=== PATIENT | female | born 1965 | race Caucasian/White ===

== ENCOUNTER → 2018-09-06 09:05 | Outpatient (CLI) | payer MEDICAID, SELFPAY ==
[2018-09-06 14:15] LABS: Alanine Aminotransferase 33 U/L (12-78); Albumin Level 3.5 gm/dL (3.4-5.0); Albumin/Globulin Ratio 0.9 (1.1-1.8); Alkaline Phosphatase 80 U/L (46-116); Anion Gap 13.5 mEq/L (5-15); Aspartate Amino Transferase 17 U/L (15-37); Bilirubin,Total 0.3 mg/dL (0.2-1.0); Blood Urea Nitrogen 12 mg/dL (7-18); Calcium 8.9 mg/dL (8.5-10.1); Carbon Dioxide 28 mmol/L (21.0-32.0); Chloride 103 mmol/L (98-107); Chol/HDL Ratio 3.3 (1-3.5); Cholesterol 182 mg/dL (140-200); Creatinine,Serum 0.65 mg/dL (0.55-1.02); Estimated Glomerular Filt Rate 96 ml/min (>60); GFR (African American) 116 ML/MIN (>60); Globulin 3.8 gm/dl (1.3-3.2); Glucose 104 mg/dL (74-106); HDL Cholesterol 56 mg/dL (29-89); LDL Cholesterol 106 mg/dL (0-130); Potassium 4.5 mmoL/L (3.5-5.1); Sodium 140 mmol/L (136-145); Total Protein,Serum 7.3 gm/dL (6.4-8.2); Triglycerides 98 mg/dL (30-200); VLDL Cholesterol 20 mg/dL (0-40)
[2018-09-06 14:25] LABS: Hemoglobin A1C 6.5 % (0.0-7.0)
== END ==
PROVIDERS: PCP Nurse Practitioner Family; Visit Provider Nurse Practitioner Family
DX: Z00.00 Encounter for general adult medical examination without abnormal findings (principal); B37.0 Candidal stomatitis; B37.2 Candidiasis of skin and nail; B37.3 Candidiasis of vulva and vagina
CPT/HCPCS: 36415; 80053; 80061; 83036

== ENCOUNTER → 2018-10-30 11:56 | Outpatient (CLI) | payer MEDICAID, SELFPAY ==
--- NOTE | 2018-10-30 12:06 | XR_ITS ---
XR chest 2V HISTORY: ITS.REASON: BRONCHITIS ORDERING PHYSICIAN: Herminio Osborne MD PATIENT AGE: 52 years COMPARISON: None FINDINGS: The cardiomediastinal silhouette and pulmonary vascularity are within normal limits. The lungs are clear without infiltrates, suspicious nodules, or pleural effusions. Calcified nodes are present in the left hilum No acute bony abnormalities. IMPRESSION: No acute finding
== END ==
PROVIDERS: PCP Internal Medicine Adolescent Medicine; Visit Provider Internal Medicine Adolescent Medicine
DX: J20.9 Acute bronchitis, unspecified (principal)
CPT/HCPCS: 71046

== ENCOUNTER → 2019-01-13 08:36 | Outpatient (CLI) | payer MEDICAID, SELFPAY ==
[2019-01-13 14:41] LABS: Basophils % 0.6 % (0.1-2.0); Eosinophils # 0.3 K/mm3 (0.0-0.4); Eosinophils % 3.7 % (0.1-12.0); Hematocrit 44.8 % (37.0-47.0); Hemoglobin 14.5 g/dL (12.2-16.2); Lymphocytes # 2.6 K/mm3 (0.7-4.5); Lymphocytes % 33.8 % (10-50); Mean Corpuscular HGB Conc 32.4 g/dL (31.8-35.4); Mean Corpuscular Hemoglobin 30.1 pg (27.0-31.2); Mean Corpuscular Volume 92.9 fl (81-99); Mean Platelet Volume 8.2 fl (7.4-10.4); Monocytes # 0.4 K/mm3 (0.1-1.0); Monocytes % 5.6 % (1.7-9.3); Neutrophils # 4.3 K/mm3 (1.8-7.8); Neutrophils % 56.4 % (37.0-80.0); Platelet Count 380 K/mm3 (142-424); Red Blood Count 4.82 M/mm3 (4.20-5.40); Red Cell Distribution Width 13.8 % (11.5-17.5); White Blood Count 7.6 K/mm3 (4.8-10.8)
[2019-01-13 14:45] LABS: Alanine Aminotransferase 45 U/L (12-78); Albumin Level 3.9 gm/dL (3.4-5.0); Alkaline Phosphatase 75 U/L (46-116); Anion Gap 15.9 mEq/L (5-15); Aspartate Amino Transferase 27 U/L (15-37); Bilirubin,Total 0.3 mg/dL (0.2-1.0); Blood Urea Nitrogen 7 mg/dL (7-18); Calcium 9.3 mg/dL (8.5-10.1); Carbon Dioxide 26 mmol/L (21.0-32.0); Chloride 100 mmol/L (98-107); Creatinine,Serum 0.74 mg/dL (0.55-1.02); Estimated Glomerular Filt Rate 82 ml/min (>60); GFR (African American) 99 ML/MIN (>60); Globulin 4.1 gm/dl (1.3-3.2); Glucose 149 mg/dL (74-106); Potassium 3.9 mmoL/L (3.5-5.1); Sodium 138 mmol/L (136-145); Thyroid Stimulating Hormone 0.63 uIU/ml (0.358-3.740)
[2019-01-13 14:57] LABS: Hemoglobin A1C 6.4 % (0.0-7.0)
[2019-01-14 06:31] LABS: Creatinine, Urine 16.3 mg/dL (Not Estab.); Microalbumin, Urine <3.0 ug/mL (Not Estab.)
[2019-01-14 09:36] LABS: Hep A Ab, IgM Negative (Negative); Hepatitis B Core Antibody IgM Negative (Negative); Hepatitis B Surface Antigen Negative (Negative)
[2019-01-15 06:57] LABS: HIV Screen 4th Generation wRfx Non Reactive (Non Reactive); Hepatitis C Antibody <0.1 s/co ratio (0.0-0.9)
== END ==
PROVIDERS: PCP Nurse Practitioner Family; Visit Provider Nurse Practitioner Family
DX: B37.0 Candidal stomatitis (principal); Z13.9 Encounter for screening, unspecified; R73.03 Prediabetes; R60.9 Edema, unspecified
CPT/HCPCS: 36415; 80053; 80074; 82043; 82570; 83036; 84443; 85025; 86703; G0432

== ENCOUNTER → 2019-05-05 13:46 | Outpatient (CLI) | payer MEDICAID, SELFPAY ==
[2019-05-05 14:54] LABS: Basophils # 0.1 K/mm3 (0-0.2); Basophils % 0.8 % (0.1-2.0); Eosinophils # 0.3 K/mm3 (0.0-0.4); Eosinophils % 3.1 % (0.1-12.0); Hematocrit 45.9 % (37.0-47.0); Hemoglobin 14.6 g/dL (12.2-16.2); Lymphocytes # 3.7 K/mm3 (0.7-4.5); Lymphocytes % 39.7 % (10-50); Mean Corpuscular HGB Conc 31.7 g/dL (31.8-35.4); Mean Corpuscular Hemoglobin 29.3 pg (27.0-31.2); Mean Corpuscular Volume 92.3 fl (81-99); Mean Platelet Volume 8.6 fl (7.4-10.4); Monocytes # 0.6 K/mm3 (0.1-1.0); Neutrophils # 4.7 K/mm3 (1.8-7.8); Neutrophils % 50.4 % (37.0-80.0); Platelet Count 367 K/mm3 (142-424); Red Blood Count 4.98 M/mm3 (4.20-5.40); Red Cell Distribution Width 13.5 % (11.5-17.5); White Blood Count 9.3 K/mm3 (4.8-10.8)
[2019-05-05 16:23] LABS: Hemoglobin A1C 7.1 % (0.0-7.0)
[2019-05-05 16:31] LABS: Alanine Aminotransferase 43 U/L (12-78); Albumin Level 3.9 gm/dL (3.4-5.0); Alkaline Phosphatase 85 U/L (46-116); Aspartate Amino Transferase 28 U/L (15-37); Bilirubin,Total 0.2 mg/dL (0.2-1.0); Blood Urea Nitrogen 11 mg/dL (7-18); Calcium 9.5 mg/dL (8.5-10.1); Carbon Dioxide 31 mmol/L (21.0-32.0); Chloride 102 mmol/L (98-107); Cholesterol 185 mg/dL (140-200); Creatinine,Serum 0.66 mg/dL (0.55-1.02); Estimated Glomerular Filt Rate 94 ml/min (>60); Free T4 (Free Thyroxine) 1.12 ng/dl (0.76-1.46); GFR (African American) 113 ML/MIN (>60); Globulin 4.1 gm/dl (1.3-3.2); Glucose 108 mg/dL (74-106); HDL Cholesterol 46 mg/dL (29-89); LDL Cholesterol 108 mg/dL (0-130); Sodium 141 mmol/L (136-145); Thyroid Stimulating Hormone 1.01 uIU/ml (0.358-3.740); Triglycerides 156 mg/dL (30-200); VLDL Cholesterol 31 mg/dL (0-40)
[2019-05-07 11:10] LABS: Creatinine, Urine 60.2 mg/dL (Not Estab.); Microalbumin, Urine 24.4 ug/mL (Not Estab.)
[2019-05-07 11:12] LABS: Vitamin D 25 Hydroxy 29.5 ng/mL (30.0-100.0)
== END ==
PROVIDERS: Visit Provider Emergency Medicine
DX: E11.9 Type 2 diabetes mellitus without complications (principal); Z79.84 Long term (current) use of oral hypoglycemic drugs; E55.9 Vitamin D deficiency, unspecified
CPT/HCPCS: 80053; 80061; 82043; 82570; 82652; 83036; 84439; 84443; 85025

== ENCOUNTER → 2019-06-04 20:06 | Outpatient (CLI) | payer MEDICAID, SELFPAY ==
--- NOTE | 2019-06-10 10:08 | PC.NURSE ---
NO CHARGE FOR SLEEP STUDY - PATIENT LEFT AFTER 2 HOURS DUE TO ANXIETY OF TESTING.....
== END ==
PROVIDERS: PCP Emergency Medicine; Visit Provider Emergency Medicine
DX: G47.33 Obstructive sleep apnea (adult) (pediatric) (principal); R40.0 Somnolence; E66.09 Other obesity due to excess calories
CPT/HCPCS: 95810

== ENCOUNTER → 2019-06-30 16:40 | Outpatient (CLI) | payer MEDICAID, SELFPAY ==
[2019-06-30 19:36] LABS: Ferritin 69 ng/mL (8-388)
== END ==
PROVIDERS: Visit Provider Specialist
DX: E83.10 Disorder of iron metabolism, unspecified (principal); G25.81 Restless legs syndrome
CPT/HCPCS: 36415; 82728

== ENCOUNTER → 2019-08-01 16:16 | Outpatient (CLI) | payer OTHER, SELFPAY | PROVIDERS: PCP Emergency Medicine; Visit Provider Specialist | DX: G47.30 Sleep apnea, unspecified (principal); G25.81 Restless legs syndrome; R06.83 Snoring; G47.00 Insomnia, unspecified; G47.19 Other hypersomnia; F51.04 Psychophysiologic insomnia | CPT/HCPCS: 95806 ==

== ENCOUNTER → 2019-08-12 10:41 | Outpatient (CLI) | payer OTHER, SELFPAY | PROVIDERS: PCP Emergency Medicine; Visit Provider Emergency Medicine | DX: M54.5 Low back pain (principal) ==

== ENCOUNTER → 2019-08-14 10:50 | Outpatient (CLI) | payer OTHER, SELFPAY ==
--- NOTE | 2019-08-14 10:52 | MR_ITS ---
PROCEDURE: MR LUMBAR SPINE WO CON CLINICAL INDICATION: back pain Low back pain which is worsening, left leg pain with bilateral leg numbness and tingling COMPARISON: No exams were available for comparison TECHNIQUE: Standard multiplanar multiecho sequences are performed without contrast. 3-D MIP and myelographic images are also rendered and reviewed FINDINGS: There is normal alignment. The spinal cord ends at the L1-L2 level. T12-L1: Mild degenerative disc disease. L1-L2: Mild facet and ligamentum hypertrophy. L2-L3: Mild facet ligamentum hypertrophy. L3-L4: Mild bulging disc with facet and ligamentum hypertrophy with bilateral lateral recess narrowing and mild bilateral foraminal narrowing. L4-5: Moderate facet ligamentum hypertrophy with mild bilateral lateral recess and foraminal narrowing slightly greater on the right. L5-S1: Degenerate disc disease with bulging disc with facet and ligamentum hypertrophy with moderate bilateral foraminal narrowing. There a small left lateral disc osteophyte complex causing some impingement upon the exiting L5 nerve root IMPRESSION: 1. Degenerate disc disease at L5-S1 with bulging disc with facet and ligamentum hypertrophy with moderate bilateral foraminal narrowing. There a small left lateral disc osteophyte complex causing impingement upon the exiting L5 nerve root 2. Other mild degenerative changes as described above. 3. No extruded herniated disc evident. Dictated by: Hernan Gilman MD 08/16/2019 06:08 Electronically signed by Hernan Gilman MD in [place] 08/16/2019 06:08
== END ==
PROVIDERS: PCP Emergency Medicine; Visit Provider Emergency Medicine
DX: M54.9 Dorsalgia, unspecified (principal); M54.5 Low back pain
CPT/HCPCS: 72148; 76376

== ENCOUNTER → 2019-08-27 17:05 | Outpatient (CLI) | payer OTHER, SELFPAY ==
[2019-08-27 20:28] LABS: Amphetamine/Metha Screen,Urine Negative ng/mL (<1000); Barbiturates Screen,Urine Negative ng/mL (<200); Benzodiazepines Screen,Urine Negative ng/mL (<200); Cannabinoid Screen,Urine Positive ng/mL (<50); Cocaine Screen,Urine Negative ng/mL (<300); Methadone Screen,Urine Negative ng/mL (<300); Opiate Screen,Urine Positive ng/mL (<300); Phencyclidine Screen,Urine Negative ng/mL (<25)
== END ==
PROVIDERS: Visit Provider Emergency Medicine
DX: M51.36 Other intervertebral disc degeneration, lumbar region (principal)
CPT/HCPCS: 80305

== ENCOUNTER → 2019-10-22 17:10 | Outpatient (CLI) | payer OTHER, SELFPAY ==
[2019-10-22 19:23] LABS: Amphetamine/Metha Screen,Urine Negative ng/mL (<1000); Barbiturates Screen,Urine Negative ng/mL (<200); Benzodiazepines Screen,Urine Negative ng/mL (<200); Cannabinoid Screen,Urine Positive ng/mL (<50); Cocaine Screen,Urine Negative ng/mL (<300); Methadone Screen,Urine Negative ng/mL (<300); Opiate Screen,Urine Positive ng/mL (<300); Phencyclidine Screen,Urine Negative ng/mL (<25)
== END ==
PROVIDERS: Visit Provider Emergency Medicine
DX: Z79.899 Other long term (current) drug therapy (principal)
CPT/HCPCS: 80305

== ENCOUNTER → 2019-10-27 13:00 | Outpatient (POV) | payer OTHER, SELFPAY ==
[2019-10-27 13:14] VITALS: BP 187/89; PULSE 88; RESP 18; O2SAT 99; BMI 44.4
--- NOTE | 2019-10-28 08:49 | HMH.PMCON ---
Assessment and Plan (1) DDD (degenerative disc disease), lumbar Current visit: No Status: Chronic Category: Medical Code(s): M51.36 - Other intervertebral disc degeneration, lumbar region (2) Lumbar nerve root impingement Current visit: No Status: Chronic Category: Medical Code(s): M54.16 - Radiculopathy, lumbar region - Assessment and plan all Dx Assessment and Plan for all problems:: We will set the patient up for L4-L5 lumbar epidural steroid injection given the symptomology. And the recommendation of the neurosurgeon. I will follow-up with the patient after injection reassess her symptoms at that time she is been taking anti-inflammatories. She is continuing a home stretching program. She is not on any anticoagulation therapy. I will follow-up with her after this. She is been instructed to call the office if she has any issues prior to her next appointment. Dr. Cohen has reviewed this note and agrees with this plan of care. This note was dictated using voice recognition software and may contain errors or omissions HPI - Data of Consult Consult date: 10/27/19 Requesting Physician: Cher Byrne APRN Primary Care Provider: Issa Yeboah MD - Consult Narrative Reason for consult: Back pain, leg pain History of present illness: Ms. Salomon is a 53 year old female who presents today for consultation regards to her low back pain. Patient rates her pain today a 6 out of 10. Mostly in her low back. Patient states that bending lifting increases her pain will rest heat ice gabapentin decrease her pain. She numbness and tingling in bilateral legs. She is tried and failed Lortab and gabapentin. Patient does have an MRI showing facet ligamentum hypertrophy along with degenerative disc disease lumbar spine. She does have impingement upon the exiting L5 nerve root. Patient and I discussed options in regards to treatment. She is interested in injective therapy. Patient was seen by Dr. Madden this was suggested to her. I do believe it would benefit her. CC: Cher Byrne APRN [facility] History I have reviewed the patient's past medical history: Yes Medical History: Reports:: Diabetes Mellitus Type 2, Hypertension *Have you ever received a pneumonia vaccine?: Yes *Have you received a flu vaccine this season?: Yes Other Medical History: Reports: Other Other Surgeries: Yes: Appendectomy, Cholecystectomy, , Tubal Ligation Amputation: No Fractures: No - *Social History Smoking Status: Current every day smoker Tobacco Type: cigarettes # Packs/Day (cigarettes): 1 #Yrs smoked (if former smoker): 35 Alcohol Intake: never Alcohol Intake Frequency:: other Substance Use Type: former substance user, marijuana *Occupational Status:: other Housing: house Household Members: significant other *Travel in the last 8 weeks: None Family Hx:: Diabetes, Heart Attack, Cancer, Hypertension, Kidney Disease Review of Systems - Review of Systems ROS General: no recent weight change, no fever, no sleep disturbances Respiratory: no cough, no shortness of air, no recurring pulmonary infections Cardiovascular/Peripheral Vascular: No chest pain, No palpitations, no edema, no shortness of breath. Gastrointestinal: no new onset incontinence, normal bowel movements reported Genitourinary: no new onset incontinence Musculoskeletal: Back pain, leg pain Psychiatric: normal mood/ affect Neurological: [denies new onset weakness in extremities], [denies new onset balance issues] Meds Home Medications Medication Instructions Recorded Confirmed Type furosemide 20 mg tablet 20 mg PO DAILY #90 tab 05/05/19 10/22/19 Rx albuterol sulfate 90 mcg/actuation 1 puff INHALATION Q4-6H PRN #18 g 08/11/19 10/22/19 Rx aerosol inhaler fluticasone propionate 50 1 spray INTRANASAL DAILY #16 g 08/11/19 10/22/19 Rx mcg/actuation nasal spray,suspension blood sugar diagnostic See Dose Instructions .ROUTE 08/27/19 0
== END ==
PROVIDERS: PCP Emergency Medicine; Visit Provider Clinical Nurse Specialist Family Health
DX: M51.16 Intervertebral disc disorders with radiculopathy, lumbar region (principal); E11.9 Type 2 diabetes mellitus without complications; I10 Essential (primary) hypertension; Z72.0 Tobacco use; Z79.899 Other long term (current) drug therapy; Z79.84 Long term (current) use of oral hypoglycemic drugs
CPT/HCPCS: 99202

== ENCOUNTER → 2019-11-17 16:49 | Outpatient (CLI) | payer OTHER, SELFPAY ==
[2019-11-17 17:43] LABS: Basophils # 0.1 K/mm3 (0-0.2); Basophils % 0.7 % (0.1-2.0); Eosinophils # 0.2 K/mm3 (0.0-0.4); Eosinophils % 1.9 % (0.1-12.0); Hematocrit 43.4 % (37.0-47.0); Hemoglobin 13.9 g/dL (12.2-16.2); Lymphocytes # 4.3 K/mm3 (0.7-4.5); Lymphocytes % 36.9 % (10-50); Mean Corpuscular HGB Conc 32.1 g/dL (31.8-35.4); Mean Corpuscular Hemoglobin 28.5 pg (27.0-31.2); Mean Corpuscular Volume 88.8 fl (81-99); Mean Platelet Volume 8.4 fl (7.4-10.4); Monocytes # 0.6 K/mm3 (0.1-1.0); Monocytes % 4.9 % (1.7-9.3); Neutrophils # 6.4 K/mm3 (1.8-7.8); Neutrophils % 55.6 % (37.0-80.0); Platelet Count 387 K/mm3 (142-424); Red Blood Count 4.89 M/mm3 (4.20-5.40); White Blood Count 11.5 K/mm3 (4.8-10.8)
[2019-11-17 21:32] LABS: Alanine Aminotransferase 27 U/L (9-52); Albumin Level 4.3 g/dL (3.4-5.0); Albumin/Globulin Ratio 1.2 (1.1-1.8); Alkaline Phosphatase 86 U/L (46-116); Anion Gap 14.1 mEq/L (5-15); Aspartate Amino Transferase 17 U/L (15-37); Bilirubin,Total 0.2 mg/dL (0.2-1.0); Blood Urea Nitrogen 11 mg/dL (7-18); Calcium 9.5 mg/dL (8.5-10.1); Carbon Dioxide 29 mmol/L (21.0-32.0); Chloride 103 mmol/L (98-107); Chol/HDL Ratio 3.6 (1-3.5); Cholesterol 171 mg/dL (140-200); Estimated Glomerular Filt Rate 75 ml/min (>60); Free T4 (Free Thyroxine) 1.24 ng/dl (0.76-1.46); GFR (African American) 91 ML/MIN (>60); Globulin 3.7 gm/dl (1.3-3.2); Glucose 99 mg/dL (74-106); HDL Cholesterol 48 mg/dL (29-89); LDL Cholesterol 77 mg/dL (0-130); Potassium 4.1 mmoL/L (3.5-5.1); Sodium 142 mmol/L (137-145); Thyroid Stimulating Hormone 1.22 uIU/ml (0.358-3.740); Triglycerides 231 mg/dL (30-200); VLDL Cholesterol 46 mg/dL (0-40)
[2019-11-21 09:34] LABS: Vitamin D 25 Hydroxy 27.2 ng/mL (30.0-100.0)
== END ==
PROVIDERS: Visit Provider Emergency Medicine
DX: E11.9 Type 2 diabetes mellitus without complications (principal); E55.9 Vitamin D deficiency, unspecified; Z79.84 Long term (current) use of oral hypoglycemic drugs
CPT/HCPCS: 80053; 80061; 82652; 84439; 84443; 85025

== ENCOUNTER → 2019-12-15 14:54 | Outpatient (POV) | payer OTHER, SELFPAY ==
[2019-12-15 15:29] VITALS: BP 178/83; PULSE 63; RESP 18; O2SAT 18; BMI 42.7
--- NOTE | 2019-12-16 08:47 | HMH.PAINSOAP ---
[facility] Pain Management SOAP Note Subjective:: Patient is a pleasant 53-year-old white female who presents today for follow-up after lumbar epidural steroid injection. She was referred to us by Dr. Madden for injections. She is actually doing fairly well. Her pain just recently began to return. She got 80% relief of her symptomology. Patient and I discussed completing the epidural series. She is interested in moving forward with this she rates her pain a 6 out of 10 she is not on any blood thinners. Patient is also on gabapentin we discussed increasing it she is currently on gabapentin 300 mg 1 p.o. 3 times daily. We will increase this to 4 times a day she can take 2 pills prior to bedtime. ROS General: no recent weight change, no fever, no sleep disturbances Respiratory: no cough, no shortness of air, no recurring pulmonary infections Cardiovascular/Peripheral Vascular: No chest pain, No palpitations, no edema, no shortness of breath. Gastrointestinal: no new onset incontinence, normal bowel movements reported Genitourinary: no new onset incontinence Musculoskeletal: Back pain Psychiatric: normal mood/ affect Neurological: [denies new onset weakness in extremities], [denies new onset balance issues] Objective:: Physical Exam General: Alert and oriented x3, no acute distress, pleasant and cooperative, [on room air] Lungs: Resps E/U, Symmetrical chest expansion, Eyes: PERRL Musculoskeletal: Flexion and extension of lumbar spine somewhat guarded secondary to pain, deep tendon reflexes normal, strength in upper and lower extremities [5/5], slightly antalgic gait noted Neurological: speech clear, transit planner equal, no gross sensory deficits Assessment:: Degenerative disc disease lumbar spine with lumbar radiculopathy Plan:: We will schedule the patient for repeat L4-L5 lumbar epidural steroid injection. We will also increase her gabapentin to 300 mg 1 p.o. 4 times daily. She can take 2 pills prior to bedtime. I will follow-up with her after injection reassess her symptoms at that time she has been instructed to call the office if she has any issues prior to her next appointment. Dr. Cohen has reviewed this note and agrees with this plan of care. This note was dictated using voice recognition software and may contain errors or omissions [facility] History I have reviewed the patient's past medical history: Yes Medical History: Reports:: Diabetes Mellitus Type 2, Hypertension Denies:: Cancer, MRSA, Seizures *Have you ever received a pneumonia vaccine?: Yes *Have you received a flu vaccine this season?: Yes Other Medical History: Reports: Other. Denies: Blood Transfusion Reaction Other Surgeries: Yes: Appendectomy, Cholecystectomy, , Tubal Ligation Amputation: No Fractures: No - *Social History Smoking Status: Former smoker Tobacco Type: cigarettes # Packs/Day (cigarettes): 1 #Yrs smoked (if former smoker): 35 Alcohol Intake: never Alcohol Intake Frequency:: other Substance Use Type: former substance user, marijuana *Occupational Status:: other Housing: house Household Members: significant other *Travel in the last 8 weeks: None Family Hx:: Diabetes, Heart Attack, Cancer, Hypertension, Kidney Disease
== END ==
PROVIDERS: PCP Emergency Medicine; Visit Provider Clinical Nurse Specialist Family Health
DX: M51.16 Intervertebral disc disorders with radiculopathy, lumbar region (principal); F12.11 Cannabis abuse, in remission
CPT/HCPCS: 99212

== ENCOUNTER → 2019-12-19 16:57 | Outpatient (CLI) | payer OTHER, SELFPAY ==
[2019-12-19 18:53] LABS: Amphetamine/Metha Screen,Urine Negative ng/ml (<1000); Barbiturates Screen,Urine Negative ng/ml (<200)
[2019-12-19 18:54] LABS: Benzodiazepines Screen,Urine Negative ng/ml (<200)
[2019-12-19 18:57] LABS: Cannabinoid Screen,Urine Positive ng/ml (<50); Cocaine Screen,Urine Negative ng/ml (<300)
[2019-12-19 18:58] LABS: Methadone Screen,Urine Negative ng/ml (<300)
[2019-12-19 18:59] LABS: Opiate Screen,Urine Positive ng/ml (<300); Phencyclidine Screen,Urine Negative ng/ml (<25)
== END ==
PROVIDERS: Visit Provider Emergency Medicine
DX: Z79.899 Other long term (current) drug therapy (principal)
CPT/HCPCS: 80305

== ENCOUNTER 2020-01-09 10:36 | Day surgery (SDC) | payer OTHER, SELFPAY ==
[2020-01-09 10:56] VITALS: BP 172/74; PULSE 57; RESP 18; TEMP 36.6; O2SAT 99; BMI 42.7
[2020-01-09 11:13] VITALS: BP 170/85; PULSE 55; RESP 18
[2020-01-09 11:14] VITALS: BP 165/87; PULSE 58; RESP 18; O2SAT 98
--- NOTE | 2020-01-09 11:17 | HMH.PMPROC ---
- Procedure Date: 01/09/20 Time: 11:18 Anesthesiologist:: Salvador Cohen MD Complications:: None Pre-procedure Diagnosis:: Degenerative disc disease of lumbar spine with lumbar radiculopathy symptoms Post-procedure Diagnosis:: Same Indications for Procedure:: This patient is a pleasant 53-year-old white female who we are treating for low back pain with lumbar radicular symptoms. She is done very well with her previous epidural steroid injection. She was 80% better. This was done approximately 2 months ago. Her pain is starting to come back and is worse in her back and down her left leg. It is affecting activities of daily living. Is affecting her functionality. She has severe pain in her back and down her left leg so we will do a lumbar epidural steroid injection today to keep her out of the emergency room and off oral opioids. Procedure Details:: Lumbar epidural steroid injection under fluoroscopy Informed consent was obtained and the risk and benefits of the procedure was explained to the patient. The patient was taken to the procedure room. The patient was placed prone on the procedure table. The patient was prepped and draped in sterile fashion. C-arm fluoroscopy was used to view the lumbar spine. Skin and subcutaneous tissues were anesthetized using lidocaine. I placed an 18-gauge epidural needle and advanced into the L4-L5 interspace using fluoroscopic guidance and [id number] to air. After confirmation of needle placement in the epidural space with dye I injected 2 mL of lidocaine 1.5% with Depo-Medrol 80 mg. Patient tolerated the procedure well with no complications. Plan and Disposition:: We will follow-up with her in 2 weeks. Will reevaluate her symptoms at that time.
[2020-01-09 11:28] VITALS: BP 166/73; PULSE 55; RESP 18; O2SAT 99
== END 2020-01-09 11:29 | disposition home or self-care (01) ==
LOC: SC.PAINP 10:36
PROVIDERS: PCP Emergency Medicine; Visit Provider Anesthesiology
DX: M51.16 Intervertebral disc disorders with radiculopathy, lumbar region (principal)
CPT/HCPCS: 62323; J1040; Q9966

== ENCOUNTER → 2020-01-26 13:47 | Outpatient (POV) | payer OTHER, SELFPAY ==
--- NOTE | 2020-01-26 13:59 | HMH.VVPMSO ---
[facility] Virtual Visit SOAP Consent for virtual visit:: With the recent concerns about the COVID-19, we are trying to minimize exposure to you by shifting to telehealth appointments whenever possible. It restricts me from seeing you in person, but the trade off is protecting you during this pandemic. Can you see and hear me okay, and do you consent to this option? If not, I would be happy to see if we can reschedule your appointment in the future, when feasible. Has patient consented to this virtual visit?: Yes Subjective:: She is pleasant 54-year-old white female who presents today for follow-up after her second L4-L5 lumbar epidural steroid injection. She states that she got 80% relief. Her pain is slowly returning and would like to finish off the third epidural in her series of 3. She rates her pain today a 6 out of 10. She has radiation of her pain into her left leg. Our plan will move the to move forward with a lumbar epidural steroid injection to help with her functionality and activities of daily living. This will serve to help keep her out of emergency rooms and off oral opioids. ROS General: no recent weight change, no fever, no sleep disturbances Respiratory: no cough, no shortness of air, no recurring pulmonary infections Cardiovascular/Peripheral Vascular: No chest pain, No palpitations, no edema, no shortness of breath. Gastrointestinal: no new onset incontinence, normal bowel movements reported Genitourinary: no new onset incontinence Musculoskeletal: Back pain, leg pain Psychiatric: normal mood/ affect, Neurological: [denies new onset weakness in extremities], [denies new onset balance issues] Objective:: Physical exam: Constitutional: Healthy appearing, well-developed, alert, in no acute distress Psychiatric: Judgment and insight intact, Alert and oriented x4 Mood and affect: Mood normal, affect appropriate Head and face: Inspection: Normocephalic atraumatic, extraocular movement intact Respiratory: Breathing nonlabored, nondyspneic Cardiovascular: No cyanosis, clubbing, or edema observed Skin: Head and neck: Skin with no lesions or rash observed Gait: Able to walk without assistive device: Able to heel and toe walk Neurologic: Sensation grossly intact per patient Musculoskeletal: Patient has decreased range of motion lumbar spine noted on video Assessment:: Degenerative disc disease lumbar spine with lumbar radiculopathy Plan:: Given the efficacy of the injections in the past we will move forward with an additional L4-L5 lumbar epidural steroid injection. She is not on any anticoagulation therapy. We will do this in a month's time. I will follow-up with her after this reassess her symptoms at that time she has been instructed to call the office if she has any issues prior to her next appointment. This encounter was performed as a telemedicine visit via secure 2 way video and audio to minimize risk and transmission of Covid-19. The patient and we understand the limitations of a telemedicine visit including inability to check reflexes, possibly missing subtle findings on physical exam. Alternative options were presented to the patient and the patient elected to proceed with the visit. We specifically discussed risk factors for Covid-19 including age, heart or lung disease, diabetes, immunosuppression and travel. We also discussed that NSAIDs may worsen Covid-19 infection symptoms and that they should not be used to treat Covid-19 symptoms. Patient was also informed that corticosteroids in any form oral or injectable will decrease immune response and may increase risk of Covid-[address] Cohen has reviewed this patient's chart and this note and agrees with plan of care. Patient has been instructed to call the office if they have any issues prior to the next appointment. Time In:: 13:50 Time Out:: 14:00 [facility] History I have reviewed the patient's past medical history: Yes Medical History:
== END ==
PROVIDERS: Visit Provider Clinical Nurse Specialist Family Health
DX: M51.16 Intervertebral disc disorders with radiculopathy, lumbar region (principal)
CPT/HCPCS: 99212

== ENCOUNTER 2020-02-27 09:06 | Day surgery (SDC) | payer OTHER, SELFPAY ==
[2020-02-27 09:23] VITALS: BP 179/71; PULSE 68; RESP 18; O2SAT 96; BMI 40.3
[2020-02-27 10:06] VITALS: BP 182/78; PULSE 64; RESP 18; O2SAT 99
[2020-02-27 10:07] VITALS: BP 178/89; PULSE 85; RESP 18; O2SAT 99
[2020-02-27 10:12] VITALS: BP 155/82; PULSE 59; RESP 18; O2SAT 97
--- NOTE | 2020-02-27 11:25 | HMH.PMPROC ---
- Procedure Date: 02/27/20 Time: 11:25 Anesthesiologist:: Salvador Cohen MD Complications:: None Pre-procedure Diagnosis:: Degenerative disc disease of lumbar spine with lumbar radiculopathy symptoms Post-procedure Diagnosis:: Same Indications for Procedure:: Patient is a pleasant 54-year-old white female who we are treating for low back pain with lumbar radicular symptoms. She is done very well with her previous injections with 80 to 90% relief in her pain symptoms. Her pain is now starting to return. She presents for third lumbar epidural steroid injection under fluoroscopy today. Procedure Details:: Lumbar epidural steroid injection under fluoroscopy informed consent was obtained and the risk and benefits of the procedure was explained to the patient. The patient was taken to the procedure room. The patient was placed prone on the procedure table. The patient was prepped and draped in sterile fashion. C-arm fluoroscopy was used to view the lumbar spine. Skin and subcutaneous tissues were anesthetized using lidocaine. I placed an 18-gauge epidural needle and advanced into the L4-L5 interspace using fluoroscopic guidance and [id number] to air. After confirmation of needle placement in the epidural space with dye I injected 2 mL of lidocaine 1.5% with Depo-Medrol 80 mg. Patient tolerated the procedure well with no complications. Plan and Disposition:: We will follow-up with her in 2 weeks. Will reevaluate symptoms at that time.
== END 2020-02-27 10:13 | disposition home or self-care (01) ==
LOC: SC.PAINP 09:07
PROVIDERS: PCP Emergency Medicine; Visit Provider Anesthesiology
DX: M51.16 Intervertebral disc disorders with radiculopathy, lumbar region (principal); I10 Essential (primary) hypertension; Z72.0 Tobacco use; J45.909 Unspecified asthma, uncomplicated; Z90.49 Acquired absence of other specified parts of digestive tract; Z79.84 Long term (current) use of oral hypoglycemic drugs; Z79.51 Long term (current) use of inhaled steroids; Z79.899 Other long term (current) drug therapy
CPT/HCPCS: 62323; J1040; Q9966

== ENCOUNTER → 2020-04-14 13:43 | Outpatient (CLI) | payer OTHER, SELFPAY ==
[2020-04-15 14:11] LABS: Hemoglobin A1C 6.2 % (4.0-6.0)
[2020-04-15 14:18] LABS: Chol/HDL Ratio 3.2 (1-3.5); Cholesterol 182 mg/dl (140-200); HDL Cholesterol 57 mg/dl (40-60); Triglycerides 162 mg/dl (30-150); VLDL Cholesterol 32 mg/dL (0-40)
[2020-04-15 14:28] LABS: Direct LDL Cholesterol 113.97 mg/dL (100-129)
== END ==
PROVIDERS: Visit Provider Emergency Medicine
DX: E11.9 Type 2 diabetes mellitus without complications (principal); E78.00 Pure hypercholesterolemia, unspecified; Z79.84 Long term (current) use of oral hypoglycemic drugs
CPT/HCPCS: 80061; 83036

== ENCOUNTER → 2020-09-21 17:42 | Outpatient (CLI) | payer OTHER, SELFPAY ==
[2020-09-21 18:18] LABS: Basophils # 0.1 K/mm3 (0-0.2); Basophils % 0.9 % (0.1-2.0); Eosinophils # 0.1 K/mm3 (0.0-0.4); Eosinophils % 1.3 % (0.1-12.0); Hematocrit 46.4 % (37.0-47.0); Hemoglobin 14.8 g/dL (12.2-16.2); Lymphocytes # 3.8 K/mm3 (0.7-4.5); Lymphocytes % 39.9 % (10-50); Mean Corpuscular HGB Conc 31.8 g/dL (31.8-35.4); Mean Corpuscular Hemoglobin 28.5 pg (27.0-31.2); Mean Corpuscular Volume 89.8 fl (81-99); Mean Platelet Volume 9.3 fl (7.4-10.4); Monocytes # 0.5 K/mm3 (0.1-1.0); Monocytes % 5.7 % (1.7-9.3); Neutrophils % 52.3 % (37.0-80.0); Platelet Count 425 K/mm3 (142-424); Red Blood Count 5.17 M/mm3 (4.20-5.40); Red Cell Distribution Width 15.1 % (11.5-17.5); White Blood Count 9.6 K/mm3 (4.8-10.8)
[2020-09-21 18:42] LABS: Alanine Aminotransferase 21 U/L (12-78); Albumin Level 4.6 g/dl (3.5-5.0); Albumin/Globulin Ratio 1.4 (1.1-1.8); Alkaline Phosphatase 91 U/L (38-126); Aspartate Amino Transferase 45 U/L (14-36); Bilirubin,Total 0.5 mg/dl (0.2-1.3); Blood Urea Nitrogen 15 mg/dl (7-17); Carbon Dioxide 31 mmol/L (22.0-30.0); Chloride 96 mmol/L (98-107); Chol/HDL Ratio 3.3 (1-3.5); Cholesterol 193 mg/dl (140-200); Estimated Glomerular Filt Rate 104 ml/min (>60); GFR (African American) 126 ML/MIN (>60); Globulin 3.4 g/dL (1.3-3.2); Glucose 141 mg/dl (74-100); HDL Cholesterol 59 mg/dl (40-60); Sodium 135 mmol/L (136-145); Triglycerides 119 mg/dl (30-150); VLDL Cholesterol 24 mg/dL (0-40)
[2020-09-21 18:54] LABS: Direct LDL Cholesterol 107.24 mg/dL (100-129)
[2020-09-21 19:00] LABS: T4 (Thyroxine) 11.1 ug/dl (5.53-11.0)
[2020-09-21 19:03] LABS: 25-OH Vitamin D, Total 28.8 ng/mL (30-100)
[2020-09-21 19:13] LABS: Thyroid Stimulating Hormone 0.64 uIU/mL (0.465-4.68)
== END ==
PROVIDERS: Visit Provider Emergency Medicine
DX: E66.9 Obesity, unspecified (principal); I10 Essential (primary) hypertension; R53.83 Other fatigue; R73.03 Prediabetes; E55.9 Vitamin D deficiency, unspecified
CPT/HCPCS: 80053; 80061; 82306; 83036; 84436; 84443; 85025

== ENCOUNTER → 2020-10-04 15:05 | Outpatient (CLI) | payer OTHER, SELFPAY ==
--- NOTE | 2020-10-04 15:09 | MM_ITS ---
PROCEDURE: MM DIG SCREENING MAMM BI W/CAD Digital Breast Tomosynthesis Included CLINICAL INDICATION: breast ca screening There is a history of breast cancer in the patient's maternal grandmother and paternal grandmother both diagnosed after menopause. COMPARISON: MG DIG MAMMO BILAT SCREENING from 08/16/2009 MG MAMMO SCREENING DIGITAL BILAT from 06/15/2015 MG Screening-Bilateral Mammography from 09/19/2018 TECHNIQUE: Standard CC and MLO images and 3D Tomosynthesis was obtained. R2 CAD reviewed. FINDINGS: The breasts are composed primarily of fat with minimal scattered fibroglandular densities in each breast. There is a stable somewhat lobulated nodular lesion 9 o'clock position right breast. This is likely a fibroadenoma. There is stable asymmetric glandular elements and a tiny benign appearing nodular density 2 to 3 o'clock position left breast. Of these asymmetries are stable and unchanged from mammograms dating back to 08/16/2009 IMPRESSION: Fatty type breast parenchyma with stable benign-appearing lesions in each breast BI-RAD Category: 2 Benign Finding(s) FOLLOW-UP: 1YR 1 Year Follow-up (A letter has been sent to the patient regarding results of the study.) Dictated by: Dr. Tao Dejesus MD 10/19/2020 08:23 Dr. Tao Dejesus MD in [place] 10/19/2020 08:23
== END ==
PROVIDERS: PCP Emergency Medicine; Visit Provider Emergency Medicine
DX: Z12.31 Encounter for screening mammogram for malignant neoplasm of breast (principal)
CPT/HCPCS: 77063; 77067

== ENCOUNTER → 2020-11-02 07:57 | Outpatient (CLI) | payer OTHER, SELFPAY ==
[2020-11-02 09:38] LABS: Coronavirus 19 IgG Antibody Negative (Negative); Coronavirus 19 IgM Antibody Negative (Negative)
[2020-11-04 09:03] LABS: HCG Qualitative, Serum Positive (Negative)
== END ==
PROVIDERS: Visit Provider Surgery
DX: Z01.812 Encounter for preprocedural laboratory examination (principal); Z20.822 Contact with and (suspected) exposure to COVID-19; Z12.11 Encounter for screening for malignant neoplasm of colon
CPT/HCPCS: 36415; 84703; 86328

== ENCOUNTER 2020-11-04 07:24 | Day surgery (SDC) | payer OTHER, SELFPAY ==
[2020-11-02 10:04] VITALS: BMI 36.3
[2020-11-04 07:56] VITALS: BP 103/56; PULSE 60; RESP 18; TEMP 36.3; O2SAT 96
[2020-11-04 08:14] LABS: POC Glucose,Bedside 106 (70-110)
--- NOTE | 2020-11-04 08:24 | HMH.ANESCL ---
[facility] Anesthesia Checklist - Structural Data Admitted From: Home Planned Operative Procedure/s: colonoscopy Consent for Planned Operative Procedure(s) Verified: Yes - Additional verifications Anesthesia Reactions: No Hx Blood Transfusions: No Blood Transfusion Reaction: No - Airway Assessment C-Spine Mobility Assessed: Yes TMJ Mobility Assessed: Yes Dentition: Good Dentition - Neurological Assessment Level of Consciousness: Awake, Alert, Appropriate - Anesthesia Plan Anesthesia Risk discussed: Yes Anesthesia Plan: Verified ASA Class: II Anesthesia Type: MAC [facility] History I have reviewed the patient's past medical history: Yes Medical History: Reports:: Anxiety, Diabetes Mellitus Type 2, Hypertension Denies:: Cancer, Diabetes Mellitus Type 1, MRSA, Seizures *Have you ever received a pneumonia vaccine?: No *Have you received a flu vaccine this season?: Yes Other Medical History: Reports: Other. Denies: Blood Transfusion Reaction Anesthesia experience/problems:: none Other Surgeries: Yes: Appendectomy, Cholecystectomy, , Tubal Ligation Amputation: No Fractures: No - *Social History Last grade of school completed: GED Smoking Status: Current every day smoker Tobacco Type: cigarettes # Packs/Day (cigarettes): 1 #Yrs smoked (if former smoker): 35 Alcohol Intake: never Alcohol Intake Frequency:: other Substance Use Type: marijuana *Occupational Status:: employed Housing: house Household Members: significant other *Travel in the last 8 weeks: None - Psychiatric History Pschychiatric History:: Reports:: Anxiety Family Hx:: Diabetes, Heart Attack, Cancer, Hypertension, Kidney Disease
--- NOTE | 2020-11-04 09:11 | SUR.PREOP ---
PT SERUM HCG POSITIVE X3 THIS AM. DR EDWARDS NOTIFIED PT AND DISCUSSED WITH HER NEED TO AMOR COLONOSCOPOY TODAY. INSTRUCTED PT TO CONTACT AESTHETICIAN TO FOLLOW UP WITH FURTHER TESTING. PT VERBALIZED UNDERSTANDING.
== END 2020-11-04 09:14 | disposition home or self-care (01) ==
LOC: OUTP 07:25
PROVIDERS: PCP Emergency Medicine; Visit Provider Surgery
PROC: 0DJD8ZZ Inspection of Lower Intestinal Tract, Via Natural or Artificial Opening Endoscopic (ICD-10-PCS; CPT 45378; principal; 2020-11-04 08:30)
DX: Z53.09 Procedure and treatment not carried out because of other contraindication (principal); Z12.11 Encounter for screening for malignant neoplasm of colon
CPT/HCPCS: 45378; 82962

== ENCOUNTER → 2020-11-05 10:11 | Outpatient (CLI) | payer OTHER, SELFPAY ==
[2020-11-05 10:57] LABS: HCG,Quantitative 7 mIU/ml (0-5.42)
== END ==
PROVIDERS: Visit Provider Obstetrics & Gynecology
DX: Z32.00 Encounter for pregnancy test, result unknown (principal)
CPT/HCPCS: 36415; 84702

== ENCOUNTER → 2020-11-26 13:53 | Outpatient (CLI) | payer OTHER, SELFPAY ==
[2020-11-26 14:18] LABS: Amphetamine/Metha Screen,Urine Negative ng/ml (<1000)
[2020-11-26 14:19] LABS: Barbiturates Screen,Urine Negative ng/ml (<200)
[2020-11-26 14:20] LABS: Benzodiazepines Screen,Urine Negative ng/ml (<200); Cannabinoid Screen,Urine Positive ng/ml (<50)
[2020-11-26 14:21] LABS: Cocaine Screen,Urine Negative ng/ml (<300)
[2020-11-26 14:22] LABS: Methadone Screen,Urine Negative ng/ml (<300); Opiate Screen,Urine Positive ng/ml (<300)
[2020-11-26 14:23] LABS: Phencyclidine Screen,Urine Negative ng/ml (<25)
== END ==
PROVIDERS: Visit Provider Emergency Medicine
DX: Z79.899 Other long term (current) drug therapy (principal)
CPT/HCPCS: 80305

== ENCOUNTER → 2020-12-14 08:11 | Outpatient (CLI) | payer OTHER, SELFPAY ==
[2020-12-14 10:43] LABS: Coronavirus 19 IgG Antibody Negative (Negative); Coronavirus 19 IgM Antibody Negative (Negative)
== END ==
PROVIDERS: Visit Provider Surgery
DX: Z01.818 Encounter for other preprocedural examination (principal); Z20.822 Contact with and (suspected) exposure to COVID-19; Z12.11 Encounter for screening for malignant neoplasm of colon
CPT/HCPCS: 36415; 86328

== ENCOUNTER 2020-12-16 06:22 | Day surgery (SDC) | payer OTHER, SELFPAY ==
[2020-12-14 11:12] VITALS: BMI 36.1
[2020-12-16 06:43] VITALS: BP 143/72; PULSE 58; RESP 18; TEMP 36.4; O2SAT 95
--- NOTE | 2020-12-16 06:57 | P.PN_ITS ---
[facility] Anesthesia Checklist - Structural Data Admitted From: Home Planned Operative Procedure/s: colonoscopy Consent for Planned Operative Procedure(s) Verified: Yes - Additional verifications Anesthesia Reactions: No Hx Blood Transfusions: No Blood Transfusion Reaction: No - Airway Assessment C-Spine Mobility Assessed: Yes TMJ Mobility Assessed: Yes Dentition: Dentures-good fit - Neurological Assessment Level of Consciousness: Awake, Alert, Appropriate - Anesthesia Plan Anesthesia Risk discussed: Yes Anesthesia Plan: Verified ASA Class: II Anesthesia Type: MAC [facility] History I have reviewed the patient's past medical history: Yes Medical History: Reports:: Anxiety, Diabetes Mellitus Type 2, Hypertension Denies:: Cancer, Diabetes Mellitus Type 1, Internal Pacemaker, MRSA, Seizures *Have you ever received a pneumonia vaccine?: No *Have you received a flu vaccine this season?: Yes Other Medical History: Reports: Other. Denies: Blood Transfusion Reaction Anesthesia experience/problems:: none Other Surgeries: Yes: Appendectomy, Cholecystectomy, , Tubal Ligation. No: Pacemaker Amputation: No Fractures: No - *Social History Last grade of school completed: GED Smoking Status: Current every day smoker Tobacco Type: cigarettes # Packs/Day (cigarettes): 1 #Yrs smoked (if former smoker): 35 Alcohol Intake: never Alcohol Intake Frequency:: other Substance Use Type: marijuana *Occupational Status:: employed Housing: house Household Members: significant other *Travel in the last 8 weeks: None - Psychiatric History Pschychiatric History:: Reports:: Anxiety Family Hx:: Diabetes, Heart Attack, Cancer, Hypertension, Kidney Disease
[2020-12-16 08:22] VITALS: BP 129/65; PULSE 61; RESP 16; TEMP 36.4; O2SAT 98
--- NOTE | 2020-12-16 08:23 | P.PCN_ITS ---
- Procedure: Date: 12/16/20 Patient Date of :: 1965 Procedure Performed:: Colonoscopy with polypectomy Indications:: Screening Performing Provider:: Mumtaz Morel MD Referring Provider:: . Sedation:: Monitored anesthesia care Procedure:: After informed consent was obtained the patient was taken to the endoscopy suite. Sedation ensued after the patient was transferred to the left lateral decubitus position. Pulse, blood pressure, and oxygen saturation were monitored throughout the procedure. Digital rectal exam revealed no significant ab normality. The colonoscope was placed in position. The entire colon was evaluated. The colonoscope was carefully removed and the patient was transferred to recovery in stable condition. Please see findings and specimens below for detail. Findings:: Bowel preparation moderate Severe spasticity Mild hemorrhoidal cushions Cecal diverticulum Polyps (see specimens) Specimens:: Large complex lobulated/pedunculated polyp at 25 cm (snare) Adjacent sessile polyps at 20 cm (snare) Recommendations:: Timing of repeat colonoscopy is pending pathology but will likely be between 1-2 years secondary to moderate bowel preparation, severe spasticity, and size/nature of polyp at 25 cm. Complications:: No immediate Estimated blood obtained (mL): 1
[2020-12-16 08:32] VITALS: BP 155/68; PULSE 53; RESP 16; TEMP 36.4; O2SAT 99
[2020-12-16 08:42] VITALS: BP 167/75; PULSE 48; RESP 18; TEMP 36.4; O2SAT 100
[2020-12-16 08:52] VITALS: BP 152/67; PULSE 52; RESP 18; O2SAT 100
[2020-12-17 11:30] LABS: POC Glucose,Bedside 124 (70-110)
== END 2020-12-16 08:52 | disposition home or self-care (01) ==
LOC: OUTP 06:23
PROVIDERS: PCP Emergency Medicine; Visit Provider Surgery
PROC: 0DJD8ZZ Inspection of Lower Intestinal Tract, Via Natural or Artificial Opening Endoscopic (ICD-10-PCS; CPT 45385; principal; 2020-12-16 07:30)
DX: Z12.11 Encounter for screening for malignant neoplasm of colon (principal); K63.5 Polyp of colon; K58.9 Irritable bowel syndrome, unspecified; K64.0 First degree hemorrhoids; K57.30 Diverticulosis of large intestine without perforation or abscess without bleeding; E11.9 Type 2 diabetes mellitus without complications; I10 Essential (primary) hypertension; F41.9 Anxiety disorder, unspecified; Z72.0 Tobacco use; F12.90 Cannabis use, unspecified, uncomplicated; Z83.3 Family history of diabetes mellitus; Z82.3 Family history of stroke
CPT/HCPCS: 45385; 82962

== ENCOUNTER → 2021-01-24 13:45 | Outpatient (CLI) | payer OTHER, SELFPAY ==
[2021-01-24 17:12] LABS: Benzodiazepines Screen,Urine Negative ng/ml (<200)
[2021-01-24 17:13] LABS: Amphetamine/Metha Screen,Urine Negative ng/ml (<1000)
[2021-01-24 17:14] LABS: Barbiturates Screen,Urine Negative ng/ml (<200); Methadone Screen,Urine Negative ng/ml (<300)
[2021-01-24 17:15] LABS: Cannabinoid Screen,Urine Positive ng/ml (<50); Cocaine Screen,Urine Negative ng/ml (<300)
[2021-01-24 17:16] LABS: Opiate Screen,Urine Positive ng/ml (<300)
[2021-01-24 17:17] LABS: Phencyclidine Screen,Urine Negative ng/ml (<25)
== END ==
PROVIDERS: Visit Provider Emergency Medicine
DX: Z79.899 Other long term (current) drug therapy (principal)
CPT/HCPCS: 80305

== ENCOUNTER → 2021-03-21 14:00 | Outpatient (CLI) | payer OTHER, SELFPAY ==
[2021-03-21 18:04] LABS: Amphetamine/Metha Screen,Urine Negative ng/ml (<1000)
[2021-03-21 18:05] LABS: Barbiturates Screen,Urine Negative ng/ml (<200); Benzodiazepines Screen,Urine Negative ng/ml (<200)
[2021-03-21 18:06] LABS: Cannabinoid Screen,Urine Positive ng/ml (<50); Cocaine Screen,Urine Negative ng/ml (<300)
[2021-03-21 18:07] LABS: Methadone Screen,Urine Negative ng/ml (<300)
[2021-03-21 18:08] LABS: Opiate Screen,Urine Positive ng/ml (<300); Phencyclidine Screen,Urine Negative ng/ml (<25)
== END ==
PROVIDERS: Visit Provider Emergency Medicine
DX: Z79.899 Other long term (current) drug therapy (principal)
CPT/HCPCS: 80305

== ENCOUNTER → 2021-05-17 16:11 | Outpatient (CLI) | payer OTHER, SELFPAY ==
[2021-05-17 16:56] LABS: Adenovirus,PCR Not Detected (NotDetected); Bordetella Pertussis Not Detected (NotDetected); Chlamydophila Pneumoniae, PCR Not Detected (NotDetected); Coronavirus 19, PCR Not Detected (NotDetected); Coronavirus 229E Not Detected (NotDetected); Coronavirus NL63 Not Detected (NotDetected); Coronavirus OC43 Not Detected (NotDetected); Coronovirus HKU1,PCR Not Detected (NotDetected); Human Metapneumovirus Not Detected (NotDetected); Influenza A, PCR Not Detected (NotDetected); Influenza AH1, 2009 Not Detected (NotDetected); Influenza AH1, PCR Not Detected (NotDetected); Influenza AH3,PCR Not Detected (NotDetected); Influenza B, PCR Not Detected (NotDetected); Mycoplasma Pneumoniae, PCR Not Detected (NotDetected); Parainfluenza 1, PCR Not Detected (NotDetected); Parainfluenza 2, PCR Not Detected (NotDetected); Parainfluenza 3, PCR Not Detected (NotDetected); Parainfluenza 4, PCR Not Detected (NotDetected); Respiratory Syncytial Virus Not Detected (NotDetected); Rhinovirus/Enterovirus Not Detected (NotDetected)
== END ==
PROVIDERS: PCP Emergency Medicine; Visit Provider Emergency Medicine
DX: Z20.822 Contact with and (suspected) exposure to COVID-19 (principal)
CPT/HCPCS: 87581; 87633; 87798

== ENCOUNTER → 2021-05-19 08:41 | Outpatient (CLI) | payer OTHER, SELFPAY ==
[2021-05-19 09:34] LABS: Amphetamine/Metha Screen,Urine Negative ng/ml (<1000); Barbiturates Screen,Urine Negative ng/ml (<200)
[2021-05-19 09:35] LABS: Benzodiazepines Screen,Urine Negative ng/ml (<200)
[2021-05-19 09:36] LABS: Cannabinoid Screen,Urine Positive ng/ml (<50); Cocaine Screen,Urine Negative ng/ml (<300)
[2021-05-19 09:37] LABS: Methadone Screen,Urine Negative ng/ml (<300)
[2021-05-19 09:38] LABS: Opiate Screen,Urine Positive ng/ml (<300); Phencyclidine Screen,Urine Negative ng/ml (<25)
== END ==
PROVIDERS: Visit Provider Emergency Medicine
DX: R82.90 Unspecified abnormal findings in urine (principal); Z79.899 Other long term (current) drug therapy
CPT/HCPCS: 80305; 87086

== ENCOUNTER → 2021-06-07 10:21 | Outpatient (CLI) | payer OTHER, SELFPAY ==
--- NOTE | 2021-06-07 10:25 | XR_ITS ---
PROCEDURE: XR FOOT LT MIN 3V CLINICAL INDICATION: fall Pain COMPARISON: No exams were available for comparison FINDINGS: There is a minimally distracted fracture involving the base of the 5th metatarsal. The fracture is transverse in nature and extends into the articular surface. There is separation of the fracture fragments by approximately 2 mm. There is good alignment. Osteoarthritic changes are present at the navicular cuneiform joint. There is a prominent calcaneal spur. IMPRESSION: Minimally distracted fracture at the base of the 5th metatarsal. Dictated by: Hernan Gilman MD 06/07/2021 11:26 Hernan Gilman MD in [place] 06/07/2021 11:26
== END ==
PROVIDERS: PCP Emergency Medicine; Visit Provider Emergency Medicine
DX: W19.XXXA Unspecified fall, initial encounter (principal); M79.672 Pain in left foot
CPT/HCPCS: 73630

== ENCOUNTER → 2021-06-08 14:21 | Outpatient (CLI) | payer OTHER, SELFPAY ==
--- NOTE | 2021-06-08 | ECG_ITS ---
APPROVED REPORT Exam: Resting ECG HR:49 bpm ECG Measurements Heart Rate 49 AXES MD 128 P 72 QRSd 88 QRS 99 QT 450 T 37 QTc 406 Conclusion Marked sinus bradycardia Rightward axis Abnormal ECG Electronically signed by : Herminio Osborne MD 06/10/2021 10:55:42
--- NOTE | 2021-06-08 15:06 | XR_ITS ---
PROCEDURE: XR CHEST 2V CLINICAL HISTORY: HTN,H/O TOBACCO USE COMPARISON: CR CXR2V XR chest 2V from 10/30/2018 CR CXR2V XR chest 2V from 11/25/2018 FINDINGS: The cardiomediastinal silhouette and pulmonary vascularity are within normal limits. There is evidence of old granulomatous disease with calcified left hilar lymph node in small calcified granuloma in the left upper lobe. No acute bony abnormalities. IMPRESSION: No acute findings. Dictated by: Hernan Gilman MD 06/08/2021 15:30 Hernan Gilman MD in [place] 06/08/2021 15:30
[2021-06-08 15:26] LABS: Basophils # 0.1 K/mm3 (0-0.2); Basophils % 1.3 % (0.1-2.0); Eosinophils # 0.3 K/mm3 (0.0-0.4); Eosinophils % 2.8 % (0.1-12.0); Hematocrit 46.9 % (37.0-47.0); Lymphocytes # 3.5 K/mm3 (0.7-4.5); Mean Corpuscular HGB Conc 31.9 g/dL (31.8-35.4); Mean Corpuscular Hemoglobin 30.1 pg (27.0-31.2); Mean Corpuscular Volume 94.5 fl (81-99); Mean Platelet Volume 8.3 fl (7.4-10.4); Monocytes # 0.5 K/mm3 (0.1-1.0); Monocytes % 4.3 % (1.7-9.3); Neutrophils % 57.6 % (37.0-80.0); Platelet Count 402 K/mm3 (142-424); Red Blood Count 4.96 M/mm3 (4.20-5.40); Red Cell Distribution Width 13.6 % (11.5-17.5); White Blood Count 10.3 K/mm3 (4.8-10.8)
[2021-06-08 15:45] LABS: Alanine Aminotransferase 49 U/L (12-78); Albumin Level 4.6 g/dl (3.5-5.0); Albumin/Globulin Ratio 1.4 (1.1-1.8); Alkaline Phosphatase 106 U/L (38-126); Anion Gap 16.4 mEq/L (5-15); Aspartate Amino Transferase 31 U/L (14-36); Bilirubin,Total 0.2 mg/dl (0.2-1.3); Blood Urea Nitrogen 16 mg/dl (7-17); Calcium 9.6 mg/dl (8.4-10.2); Carbon Dioxide 29 mmol/L (22.0-30.0); Chloride 101 mmol/L (98-107); Estimated Glomerular Filt Rate 104 ml/min (>60); GFR (African American) 126 ML/MIN (>60); Globulin 3.4 g/dL (1.3-3.2); Glucose 86 mg/dl (74-100); Potassium 4.4 mmoL/L (3.5-5.1); Sodium 142 mmol/L (136-145)
[2021-06-09 12:47] LABS: Hemoglobin A1C 6.2 % (4.0-6.0)
[2021-06-25 16:53] LABS: Cotinine 75.6; Nicotine 6.4
== END ==
PROVIDERS: PCP Emergency Medicine; Visit Provider Podiatrist
DX: Z01.818 Encounter for other preprocedural examination (principal); Z20.822 Contact with and (suspected) exposure to COVID-19; S92.352A Displaced fracture of fifth metatarsal bone, left foot, initial encounter for closed fracture
CPT/HCPCS: 36415; 71046; 80053; 80323; 82306; 83036; 85025; 93005; U0003

== ENCOUNTER 2021-06-09 12:00 | Day surgery (SDC) | payer OTHER, SELFPAY ==
[2021-06-09] VITALS (9 sets, daily range): BP systolic 108–153; BP diastolic 52–77; PULSE 51–77; RESP 14–18; TEMP 36.5–37.1; O2SAT 94–100; BMI 36.1
--- NOTE | 2021-06-09 | XR_ITS ---
PROCEDURE: XR FOOT LT 2V CLINICAL INDICATION: C-ARM CASE, LEFT FOOT ORIF COMPARISON: No exams were available for comparison FINDINGS: Fluoroscopy time: 58 seconds Multiple images submitted with the C-arm demonstrates interval placement of a longitudinal screw through the proximal aspect of the 5th metatarsal with good alignment. IMPRESSION: ORIF 5th MT fracture with good alignment Dictated by: Hernan Gilman MD 06/09/2021 17:02 Hernan Gilman MD in [place] 06/09/2021 17:02
[2021-06-09 12:48] LABS: POC Glucose,Bedside 95 (70-110)
--- NOTE | 2021-06-09 13:12 | HMH.ANESCL ---
[facility] Anesthesia Checklist - Patient Identification Patient Identification: Arm Band - Structural Data Admitted From: Home Planned Operative Procedure/s: ORIF Left 5th Metatarsal Consent for Planned Operative Procedure(s) Verified: Yes Verified Documents: Surgical Consent, History and Physical - NPO Status Verified Time NPO: 00:00 - Additional verifications Anesthesia Reactions: No Hx Blood Transfusions: No Blood Transfusion Reaction: No - Airway Assessment C-Spine Mobility Assessed: Yes (mp2) TMJ Mobility Assessed: Yes Dentition: Good Dentition - Neurological Assessment Level of Consciousness: Awake, Alert - Anesthesia Plan Anesthesia Risk discussed: Yes Anesthesia Plan: Verified ASA Class: III Anesthesia Type: General w/block (Popliteal/Saphenous. Risks/benefits explained. Pt verbalized understanding) [facility] History I have reviewed the patient's past medical history: Yes Medical History: Reports:: Anxiety, Diabetes Mellitus Type 2, Hypertension Denies:: Cancer, Diabetes Mellitus Type 1, Internal Pacemaker, MRSA, Seizures *Have you ever received a pneumonia vaccine?: No *Have you received a flu vaccine this season?: Yes Other Medical History: Reports: Other. Denies: Blood Transfusion Reaction Anesthesia experience/problems:: nac Other Surgeries: Yes: Appendectomy, Cholecystectomy, Colonoscopy, , Tubal Ligation. No: Pacemaker Amputation: No Fractures: No - *Social History Last grade of school completed: GED Smoking Status: Current every day smoker Tobacco Type: cigarettes # Packs/Day (cigarettes): 1 #Yrs smoked (if former smoker): 35 Alcohol Intake: never Alcohol Intake Frequency:: other Substance Use Type: marijuana Last Used Substance: days (ago) *Occupational Status:: employed Housing: house Household Members: significant other *Travel in the last 8 weeks: None - Psychiatric History Pschychiatric History:: Reports:: Anxiety Family Hx:: Cancer, Diabetes
--- NOTE | 2021-06-09 15:22 | HMH.OPNOTE ---
Date of procedure: 06/09/21 Pre-op Diagnosis:: 1. Left 5th metatarsal fracture Post-op Diagnosis:: Same Procedure performed:: 1. Left 5th metatarsal ORIF 2. Application of amniotic injectable graft 3. Application of posterior splint Surgeon:: Francheska Sampson DPM CASTING WHEEL OPERATOR:: Calderon Robledo Anesthesia: GETA, regional (left popliteal block) Estimated blood loss (mL): 5 Clinical Note:: Patient is a 55F with DM who tripped and fell at home 06/07/21. She called her PCP office who ordered a foot x-ray. X-ray did show fracture at fifth metatarsal. PCP Dr. Yeboah called me for surgical consultation. Patient last seen in his office 05/24/2021 for left knee pain. Dr. Yeboah gave verbal medical clearance to proceed with surgery. X-rays reviewed and discussed with the patient. Conservative treatment discussed but not recommended due to distraction and slow healing. We discussed surgery. All risks and benefits were discussed including but not limited to: damage to blood vessels and nerves, bleeding, infection, wound complications, delayed, mal or non-union of bone, post-traumatic arthritis, need for further surgery, implant failure, need for removal of implant, prolonged or permanent swelling of the extremity, prolonged or permanent pain or deformity, CRPS/RSD, DVT/PE, and anesthetic complications including . No guarantees were given. All questions fully answered. The patient verbalized understanding and agreed to proceed with surgery. Consent was obtained. Verbal medical clearance granted per Dr. Yeboah. Necessary labs and pre-op testing ordered: CBC, BMP, EKG, CXR, vit D, nicotinine/cotinine levels, covid. Patient takes Bertrand 7.5/325 for chronic back pain. We discussed preoperative nerve block to help with postop pain. We will also prescribe Toradol x5 days postoperatively. Discussed risk factors for DVT/PE. She is obese but denies personal or family history of DVT/PE. e-Rx Phenergran, Motrin, vit D. Patient given a fracture boot and crutches. Recommend walker and RKS. Operative findings:: Left foot transverse fracture noted to the base of the fifth metatarsal. Fracture was further displaced with 3-4 mm of gapping. Bone noted to be soft. Fracture reduced. No evidence of other fractures. Operative note:: On this date and time patient was deemed an appropriate surgical candidate. With informed consent signed, pre-op regional popliteal block given by anesthesia. The patient was taken to the operating theater. The patient was positioned supine. General anesthesia was induced. IV Ancef given. Tourniquet applied to the left mid calf. Left lower extremity was prepped and draped in normal sterile fashion. Left 5th Metatarsal Fracture ORIF: Attention was directed to the lateral foot, where intra-op fluoroscopy was used to map out the 5th metatarsal base on both the AP, MO and lateral views. Next, a 15' blade was used to make a small incision proximal to the 5th met base. Blunt dissection was utilitzed to dissect thru skin and subcutaneous tissue with care taken to maintain surgical hemostasis and safely retract neurovascular structures. Dissection was then carried bluntly with a hemostat to the bone. Fracture was derotated and reduced. The wound was flushed with copious amounts of saline. A guide wire for a 4.5mm [employer] medical screw was inserted under fluoro. Position was checked in all 3 planes. The K-wire was in good position, extending down the medullary canal. At this point, a cannulated drill and tap were used. The guide wire was then removed and a 40mm solid core 4.5mm [employer] screw was inserted in standard technique, while compressing the fracture. Good screw purchase and compression was noted. At this point final position was checked under intra-op fluoro and deemed to be appropriate with stable fixation. Application of amniotic injectable graft and posterior splint: The wounds were cleansed. The tourniquet was not inflated. Viaflow inserted into fracture site and skin to aid in
--- NOTE | 2021-06-09 16:19 | HMH.ANESI ---
[facility] Anesthesia Record Part I Intake, IV Amount: 300 Estimated blood loss (mL): 5 Urine output (mL): 0 Blood Pressure: 114/52 SaO2: 94 Pulse Rate: 77 Respiratory Rate: 16 Temperature: 97.7 F Patient is:: Awake Stable to PACU at:: 16:18
--- NOTE | 2021-06-09 16:30 | XR_ITS ---
PROCEDURE: XR FOOT LT MIN 3V CLINICAL INDICATION: Post op ORIF COMPARISON: CR XR FOOT LT MIN 3V from 06/07/2021 XA XR FOOT LT 2V from 06/09/2021 FINDINGS: Studies obtained through a cast. There has been prior ORIF of a 5th metatarsal fracture with longitudinal screw through the base of the 5th metatarsal. The screw head however appears to be deep to the proximal fracture fragment and slightly lateral to the widest portion of the fracture fragment. It is possible that this screw could be along the lateral cortex of the proximal fracture fragment. IMPRESSION: Status post ORIF 5th metatarsal fracture with good alignment as described above. Dictated by: Hernan Gilman MD 06/09/2021 17:11 Hernan Gilman MD in [place] 06/09/2021 17:11
[2021-06-09 16:45] LABS: POC Glucose,Bedside 94 (70-110)
--- NOTE | 2021-06-10 08:54 | HMH.ANESII ---
[facility] Anesthesia Record Part II Discharge Time: 16:48 Destination: Surgical Day Care (OP Surgery) PACU nurse assessment reviewed?: Yes Patient Condition:: Good Anesthesia Complications:: None Swallowing reflex intact?: Yes Cyanosis?: No Blood Pressure: 121/74 Pulse Rate: 58 Temperature: 98.2 F Mental Status: Alert & Oriented Pain level:: 0 Nausea and/or vomitting:: None Intake, IV Amount: 0
[2021-06-10 08:55] VITALS: BP 121/74; PULSE 58; TEMP 36.8
== END 2021-06-09 17:20 | disposition home or self-care (01) ==
LOC: OR 12:02
PROVIDERS: PCP Emergency Medicine; Visit Provider Podiatrist
PROC: (CPT 28485; principal; 2021-06-09 13:30)
DX: S92.352A Displaced fracture of fifth metatarsal bone, left foot, initial encounter for closed fracture (principal); W01.0XXA Fall on same level from slipping, tripping and stumbling without subsequent striking against object, initial encounter; Y92.019 Unspecified place in single-family (private) house as the place of occurrence of the external cause; E11.40 Type 2 diabetes mellitus with diabetic neuropathy, unspecified; F17.210 Nicotine dependence, cigarettes, uncomplicated
CPT/HCPCS: 28485; 73620; 73630; 82962; 96374; C1762; J2405

== ENCOUNTER → 2021-07-08 15:10 | Outpatient (CLI) | payer OTHER, SELFPAY ==
[2021-07-08 16:01] LABS: Amphetamine/Metha Screen,Urine Negative ng/ml (<1000); Barbiturates Screen,Urine Negative ng/ml (<200)
[2021-07-08 16:03] LABS: Benzodiazepines Screen,Urine Negative ng/ml (<200)
[2021-07-08 16:04] LABS: Cannabinoid Screen,Urine Positive ng/ml (<50); Cocaine Screen,Urine Negative ng/ml (<300)
[2021-07-08 16:06] LABS: Methadone Screen,Urine Negative ng/ml (<300)
[2021-07-08 16:07] LABS: Opiate Screen,Urine Positive ng/ml (<300); Phencyclidine Screen,Urine Negative ng/ml (<25)
== END ==
PROVIDERS: Visit Provider Emergency Medicine
DX: Z79.899 Other long term (current) drug therapy (principal)
CPT/HCPCS: 80305

== ENCOUNTER → 2021-07-12 10:00 | Outpatient (CLI) | payer OTHER, SELFPAY ==
--- NOTE | 2021-07-12 10:08 | XR_ITS ---
PROCEDURE: XR FOOT WT BEARING LT 3V CLINICAL INDICATION: fracture evaluation COMPARISON: CR XR FOOT LT MIN 3V from 06/07/2021 CR XR FOOT LT MIN 3V from 06/09/2021 FINDINGS: The splint has been removed. Longitudinal screw is present through the base of the 5th metatarsal Screw head however once again appears to be deep to the fracture fragment. Fracture line still visible on the lateral view. There may be some healing along the medial margin Other findings:None. IMPRESSION: Status post ORIF 5th metatarsal fracture as described above. There does appear to be some healing of the fracture medially. No significant displacement Dictated by: Hernan Gilman MD 07/12/2021 16:32 Hernan Gilman MD in [place] 07/12/2021 16:32
== END ==
PROVIDERS: PCP Emergency Medicine; Visit Provider Podiatrist
DX: S92.352A Displaced fracture of fifth metatarsal bone, left foot, initial encounter for closed fracture (principal); Z98.890 Other specified postprocedural states
CPT/HCPCS: 73630

== ENCOUNTER 2021-08-11 10:30 | Outpatient (RCR) | payer OTHER, SELFPAY ==
--- NOTE | 2021-07-28 14:29 | HMH.PTOPEV ---
PT Outpatient Evaluation Rehab PT Outpatient Evaluation Start: 07/28/21 13:58 Freq: Status: Active Protocol: Document 07/28/21 14:16 PHOALEXANDER (Rec: 07/28/21 14:29 PHORNE [id number]) Electronically Signed By Raphael Calderón, PT 07/28/21 14:16 Outpatient Therapy Subjective History Subjective History Pt is 55 yowf who presents with c/o pain and stiffness in the L foot after L 5th MT ORIF performed 06/09/21. She reports difficulty walking as well due to tenderness on the lateral L foot at this time. She reports pain is worse with prolonged standing or walking . She reports PMH of DM-II, HTN, and anxiety. Chief Complaint Pain,Stiff Symptom Type Ache Symptoms Relieved By Rest/Positioning Symptoms Aggravated By Walking Prior Functional Limitations None Current Functional Limitations Standing,Walking Symptom Description Activity Dependent Level of pain today (0-10) 4 Pain scale - at its worst (0-10) 8 Ankle/Foot Eval Gait Observation General Gait Pattern Observation Antalgic Gait,Decrease Stride Lngth (L) Palpation Tenderness left Ankle/Foot Palpation Findings Tenderness Ankle/Foot Palpation Overall Comment L 5th MT ROM Ankle/Foot Dorsiflexion w/Knee Extended 0-7 Active Range Motion (degrees) Ankle/Foot Plantar Flexion Active Range 0-40 of Motion (degrees) Ankle/Foot Eversion Active Range of 0-24 Motion (degrees) Ankle/Foot Inversion Active Range of 0-35 Motion (degrees) MMT Ankle Dorsiflexion Strength Grade 5 Normal Ankle Plantarflexion Strength Grade 5 Normal Foot Eversion Strength Grade 5 Normal Foot Inversion Strength Grade 5 Normal Outpatient Therapy Assessment Impairments Problems/Impairmments Palpation Tenderness,Impaired Range of Motion,Impaired Gait Pattern,Impaired Walking, Impaired Standing,Increased Edema,Subjective C/O Pain, Impaired Self Care/Self Management Prognosis Rehab Potential Good Clinical Impression Consistent with Diagnosis Yes Short Term Goals Number of Weeks 4 Decreased Palpation Tenderness Yes Increase Range of Motion Yes: L ankle by 5 deg Improve Gait Pattern without Assistive Yes Device Decrease Edema 11/10 De
== END 2021-08-11 10:35 | disposition home or self-care (01) ==
LOC: PT 10:30
PROVIDERS: PCP Emergency Medicine; Visit Provider Podiatrist
DX: S92.355D Nondisplaced fracture of fifth metatarsal bone, left foot, subsequent encounter for fracture with routine healing (principal)
CPT/HCPCS: 97110; 97112; 97163; 97760

== ENCOUNTER → 2021-08-16 10:18 | Outpatient (CLI) | payer OTHER, SELFPAY ==
--- NOTE | 2021-08-16 10:21 | XR_ITS ---
PROCEDURE: XR FOOT WT BEARING LT 3V CLINICAL INDICATION: fracture follow up COMPARISON: CR XR FOOT LT MIN 3V from 06/07/2021 CR XR FOOT LT MIN 3V from 06/09/2021 CR XR FOOT WT BEARING LT 3V from 07/12/2021 FINDINGS: Longitudinal screws present at the proximal aspect of the 5th metatarsal previously described. The head of the screw appears to be at the fracture line with persistent lucency along the lateral and inferior aspect of the fracture. There may be bony bridging medially. There is good alignment. Mild osteoarthritic changes talonavicular joint and navicular cuneiform joint. Prominent calcaneal spur. Other findings:None. IMPRESSION: No change prior ORIF 5th metatarsal fracture as described above Dictated by: Hernan Gilman MD 08/17/2021 08:04 Hernan Gilman MD in [place] 08/17/2021 08:04
== END ==
PROVIDERS: PCP Emergency Medicine; Visit Provider Podiatrist
DX: S92.352A Displaced fracture of fifth metatarsal bone, left foot, initial encounter for closed fracture (principal); Z98.890 Other specified postprocedural states
CPT/HCPCS: 73630

== ENCOUNTER → 2021-09-06 13:44 | Outpatient (CLI) | payer OTHER, SELFPAY ==
--- NOTE | 2021-09-06 13:49 | XR_ITS ---
PROCEDURE: XR FOOT WT BEARING RT 3V CLINICAL INDICATION: foot pain COMPARISON: CR XR FOOT LT MIN 3V from 06/07/2021 CR XR FOOT LT MIN 3V from 06/09/2021 CR XR FOOT WT BEARING LT 3V from 07/12/2021 CR XR FOOT WT BEARING LT 3V from 08/16/2021 FINDINGS: No fracture or dislocation. No lytic or blastic change. There is normal mineralization. Mild osteoarthritic change 1st MTP joint. Other findings:There is a prominent calcaneal spur. Mild osteoarthritic change at the navicular cuneiform joint. Small bone island of the cuboid. Small Achilles enthesophyte IMPRESSION: Mild osteoarthritic change with prominent calcaneal spur noted. No bony erosive change of the spur. Dictated by: Hernan Gilman MD 09/06/2021 15:18 Hernan Gilman MD in [place] 09/06/2021 15:18
[2021-09-06 14:35] LABS: Amphetamine/Metha Screen,Urine Negative ng/ml (<1000); Barbiturates Screen,Urine Negative ng/ml (<200); Benzodiazepines Screen,Urine Negative ng/ml (<200); Cannabinoid Screen,Urine Positive ng/ml (<50); Cocaine Screen,Urine Negative ng/ml (<300); Methadone Screen,Urine Negative ng/ml (<300); Opiate Screen,Urine Positive ng/ml (<300); Phencyclidine Screen,Urine Negative ng/ml (<25)
== END ==
PROVIDERS: PCP Emergency Medicine; Visit Provider Podiatrist
DX: M79.671 Pain in right foot (principal); Z79.899 Other long term (current) drug therapy
CPT/HCPCS: 73630; 80305

== ENCOUNTER → 2021-09-06 13:44 | Outpatient (CLI) | payer OTHER, SELFPAY | PROVIDERS: Visit Provider Emergency Medicine | DX: Z79.899 Other long term (current) drug therapy (principal) | CPT/HCPCS: 80305 ==

== ENCOUNTER → 2021-11-04 15:52 | Outpatient (CLI) | payer OTHER, SELFPAY ==
[2021-11-04 17:16] LABS: Amphetamine/Metha Screen,Urine Negative ng/ml (<1000)
[2021-11-04 17:17] LABS: Barbiturates Screen,Urine Negative ng/ml (<200)
[2021-11-04 17:18] LABS: Benzodiazepines Screen,Urine Negative ng/ml (<200); Cannabinoid Screen,Urine Positive ng/ml (<50)
[2021-11-04 17:19] LABS: Cocaine Screen,Urine Negative ng/ml (<300)
[2021-11-04 17:20] LABS: Methadone Screen,Urine Negative ng/ml (<300); Opiate Screen,Urine Positive ng/ml (<300)
[2021-11-04 17:21] LABS: Phencyclidine Screen,Urine Negative ng/ml (<25)
== END ==
PROVIDERS: PCP Emergency Medicine; Visit Provider Emergency Medicine
DX: Z79.899 Other long term (current) drug therapy (principal)
CPT/HCPCS: 80305

== ENCOUNTER → 2021-12-30 10:44 | Outpatient (CLI) | payer OTHER, SELFPAY ==
[2021-12-30 14:58] LABS: Amphetamine/Metha Screen,Urine Negative ng/ml (<1000)
[2021-12-30 15:00] LABS: Barbiturates Screen,Urine Negative ng/ml (<200); Benzodiazepines Screen,Urine Negative ng/ml (<200)
[2021-12-30 15:01] LABS: Cannabinoid Screen,Urine Positive ng/ml (<50); Cocaine Screen,Urine Negative ng/ml (<300)
[2021-12-30 15:02] LABS: Methadone Screen,Urine Negative ng/ml (<300)
[2021-12-30 15:03] LABS: Opiate Screen,Urine Positive ng/ml (<300); Phencyclidine Screen,Urine Negative ng/ml (<25)
== END ==
PROVIDERS: Visit Provider Emergency Medicine
DX: N39.0 Urinary tract infection, site not specified (principal)
CPT/HCPCS: 80305; 87086

== ENCOUNTER → 2022-03-01 15:48 | Outpatient (CLI) | payer OTHER, SELFPAY ==
[2022-03-01 18:01] LABS: Phencyclidine Screen,Urine Negative ng/ml (<25)
[2022-03-01 18:13] LABS: Amphetamine/Metha Screen,Urine Negative ng/ml (<1000)
[2022-03-01 18:14] LABS: Barbiturates Screen,Urine Negative ng/ml (<200); Cannabinoid Screen,Urine Positive ng/ml (<50)
[2022-03-01 18:15] LABS: Benzodiazepines Screen,Urine Negative ng/ml (<200)
[2022-03-01 18:16] LABS: Cocaine Screen,Urine Negative ng/ml (<300)
[2022-03-01 18:17] LABS: Methadone Screen,Urine Negative ng/ml (<300)
[2022-03-01 18:18] LABS: Opiate Screen,Urine Positive ng/ml (<300)
== END ==
PROVIDERS: PCP Emergency Medicine; Visit Provider Emergency Medicine
DX: F41.9 Anxiety disorder, unspecified (principal)
CPT/HCPCS: 80305

== ENCOUNTER → 2022-05-05 15:16 | Outpatient (CLI) | payer OTHER, SELFPAY ==
[2022-05-05 13:37] LABS: Chloride 102 mmol/L (98-107); Sodium 138 mmol/L (136-145)
[2022-05-05 13:38] LABS: Potassium 4.2 mmoL/L (3.5-5.1)
[2022-05-05 13:39] LABS: Basophils # 0.1 K/mm3 (0-0.2); Basophils % 1.5 % (0.1-2.0); Eosinophils # 0.2 K/mm3 (0.0-0.4); Eosinophils % 2.2 % (0.1-12.0); Hematocrit 43.7 % (37.0-47.0); Hemoglobin 13.8 g/dL (12.2-16.2); Lymphocytes # 2.8 K/mm3 (0.7-4.5); Lymphocytes % 34.9 % (10-50); Mean Corpuscular HGB Conc 31.6 g/dL (31.8-35.4); Mean Corpuscular Hemoglobin 30.2 pg (27.0-31.2); Mean Corpuscular Volume 95.8 fl (81-99); Mean Platelet Volume 9.3 fl (7.4-10.4); Monocytes # 0.5 K/mm3 (0.1-1.0); Monocytes % 6.3 % (1.7-9.3); Neutrophils # 4.5 K/mm3 (1.8-7.8); Neutrophils % 55.1 % (37.0-80.0); Platelet Count 346 K/mm3 (142-424); Red Blood Count 4.56 M/mm3 (4.20-5.40); White Blood Count 8.2 K/mm3 (4.8-10.8)
[2022-05-05 13:40] LABS: Alanine Aminotransferase 22 U/L (12-78); Alkaline Phosphatase 88 U/L (38-126); Anion Gap 12.2 mEq/L (5-15); Aspartate Amino Transferase 28 U/L (14-36); Carbon Dioxide 28 mmol/L (22.0-30.0); Cholesterol 182 mg/dl (140-200); Triglycerides 115 mg/dl (30-150); VLDL Cholesterol 23 mg/dL (0-40)
[2022-05-05 13:41] LABS: Albumin Level 4.3 g/dl (3.5-5.0); Albumin/Globulin Ratio 1.5 (1.1-1.8); Calcium 9.8 mg/dl (8.4-10.2); Chol/HDL Ratio 3.5 (1-3.5); Globulin 2.8 g/dL (1.3-3.2); Glucose 155 mg/dl (74-100); HDL Cholesterol 52 mg/dl (40-60); Total Protein,Serum 7.1 g/dl (6.3-8.2)
[2022-05-05 13:43] LABS: Bilirubin,Total < 0.1 mg/dl (0.2-1.3)
[2022-05-05 13:55] LABS: Blood Urea Nitrogen 14 mg/dl (7-17); Estimated Glomerular Filt Rate 128 ml/min (>60); GFR (African American) 154 ML/MIN (>60)
[2022-05-05 13:58] LABS: 25-OH Vitamin D, Total 43.8 ng/mL (30-100)
[2022-05-05 14:04] LABS: Free T4 (Free Thyroxine) 1.28 ng/dl (0.78-2.19)
[2022-05-05 14:12] LABS: Thyroid Stimulating Hormone 1.09 uIU/mL (0.465-4.68)
[2022-05-07 08:13] LABS: Direct LDL Cholesterol 108 mg/dL (100-129)
== END ==
PROVIDERS: PCP Emergency Medicine; Visit Provider Emergency Medicine
DX: E11.9 Type 2 diabetes mellitus without complications (principal); R53.83 Other fatigue; E03.9 Hypothyroidism, unspecified; K59.00 Constipation, unspecified; E66.9 Obesity, unspecified; Z68.38 Body mass index [BMI] 38.0-38.9, adult
CPT/HCPCS: 80053; 80061; 82306; 83036; 84439; 84443; 85025

== ENCOUNTER → 2022-06-26 06:50 | Outpatient (CLI) | payer OTHER, SELFPAY ==
[2022-06-26 18:23] LABS: Amphetamine/Metha Screen,Urine Negative ng/ml (<1000); Barbiturates Screen,Urine Negative ng/ml (<200)
[2022-06-26 18:24] LABS: Benzodiazepines Screen,Urine Negative ng/ml (<200); Cannabinoid Screen,Urine Positive ng/ml (<50)
[2022-06-26 18:25] LABS: Cocaine Screen,Urine Negative ng/ml (<300)
[2022-06-26 18:26] LABS: Methadone Screen,Urine Negative ng/ml (<300)
[2022-06-26 18:27] LABS: Opiate Screen,Urine Positive ng/ml (<300); Phencyclidine Screen,Urine Negative ng/ml (<25)
== END ==
PROVIDERS: PCP Emergency Medicine; Visit Provider Emergency Medicine
DX: N39.0 Urinary tract infection, site not specified (principal); R39.9 Unspecified symptoms and signs involving the genitourinary system; M51.36 Other intervertebral disc degeneration, lumbar region
CPT/HCPCS: 80305; 87086

== ENCOUNTER → 2022-08-21 15:50 | Outpatient (CLI) | payer OTHER, SELFPAY ==
[2022-08-21 20:28] LABS: Amphetamine/Metha Screen,Urine Negative ng/ml (<1000)
[2022-08-21 20:29] LABS: Barbiturates Screen,Urine Negative ng/ml (<200); Benzodiazepines Screen,Urine Negative ng/ml (<200)
[2022-08-21 20:30] LABS: Cannabinoid Screen,Urine Positive ng/ml (<50)
[2022-08-21 20:31] LABS: Cocaine Screen,Urine Negative ng/ml (<300); Methadone Screen,Urine Negative ng/ml (<300)
[2022-08-21 20:32] LABS: Opiate Screen,Urine Positive ng/ml (<300); Phencyclidine Screen,Urine Negative ng/ml (<25)
== END ==
PROVIDERS: PCP Emergency Medicine; Visit Provider Emergency Medicine
DX: Z79.899 Other long term (current) drug therapy (principal)
CPT/HCPCS: 80305

== ENCOUNTER → 2023-02-09 23:26 | Outpatient (CLI) | payer OTHER, SELFPAY | PROVIDERS: PCP Emergency Medicine; Visit Provider Emergency Medicine | DX: M54.50 Low back pain, unspecified (principal) | CPT/HCPCS: 87086 ==

== ENCOUNTER → 2023-04-09 23:32 | Outpatient (CLI) | payer OTHER, SELFPAY ==
[2023-04-10 00:57] LABS: Creatinine,Urine Random 168 mg/dL (Not Estab.)
[2023-04-10 02:07] LABS: Amphetamine/Metha Screen,Urine Negative ng/ml (<1000); Benzodiazepines Screen,Urine Negative ng/ml (<200)
[2023-04-10 02:08] LABS: Barbiturates Screen,Urine Negative ng/ml (<200)
[2023-04-10 02:09] LABS: Cocaine Screen,Urine Negative ng/ml (<300)
[2023-04-10 03:24] LABS: Phencyclidine Screen,Urine Negative ng/ml (<25)
[2023-04-10 03:27] LABS: Methadone Screen,Urine Negative ng/ml (<300); Opiate Screen,Urine Positive ng/ml (<300)
[2023-04-10 03:30] LABS: Cannabinoid Screen,Urine Positive ng/ml (<50)
== END ==
PROVIDERS: PCP Emergency Medicine; Visit Provider Emergency Medicine
DX: Z79.899 Other long term (current) drug therapy (principal)
CPT/HCPCS: 80305; 82043; 82570; 87086

== ENCOUNTER → 2023-06-08 23:51 | Outpatient (CLI) | payer OTHER, SELFPAY ==
[2023-06-08 19:35] LABS: Amphetamine/Metha Screen,Urine Negative ng/ml (<1000)
[2023-06-08 19:37] LABS: Barbiturates Screen,Urine Negative ng/ml (<200); Benzodiazepines Screen,Urine Negative ng/ml (<200)
[2023-06-08 19:38] LABS: Cannabinoid Screen,Urine Positive ng/ml (<50); Cocaine Screen,Urine Negative ng/ml (<300)
[2023-06-08 19:39] LABS: Methadone Screen,Urine Negative ng/ml (<300)
[2023-06-08 19:40] LABS: Opiate Screen,Urine Positive ng/ml (<300); Phencyclidine Screen,Urine Negative ng/ml (<25)
[2023-06-08 19:52] LABS: Hemoglobin A1C 5.8 % (4.0-6.0)
[2023-06-08 19:58] LABS: Alanine Aminotransferase 20 U/L (12-78); Albumin Level 4.6 g/dl (3.5-5.0); Albumin/Globulin Ratio 1.4 (1.1-1.8); Alkaline Phosphatase 71 U/L (38-126); Anion Gap 13.8 mEq/L (5-15); Aspartate Amino Transferase 26 U/L (14-36); Bilirubin,Direct 0.1 mg/dl (0.0-0.4); Blood Urea Nitrogen 16 mg/dl (7-17); Calcium 9.4 mg/dl (8.4-10.2); Carbon Dioxide 29 mmol/L (22.0-30.0); Chloride 101 mmol/L (98-107); Chol/HDL Ratio 3.1 (1-3.5); Cholesterol 150 mg/dl (140-200); Estimated Glomerular Filt Rate 86 ml/min (>60); GFR (African American) 104 ML/MIN (>60); Globulin 3.3 g/dL (1.3-3.2); Glucose 79 mg/dl (74-100); HDL Cholesterol 49 mg/dl (40-60); Potassium 3.8 mmoL/L (3.5-5.1); Sodium 140 mmol/L (136-145); Total Protein,Serum 7.9 g/dl (6.3-8.2); Triglycerides 136 mg/dl (30-150); VLDL Cholesterol 27 mg/dL (0-40)
[2023-06-08 20:05] LABS: Bilirubin,Total 0.1 mg/dl (0.2-1.3)
[2023-06-08 20:09] LABS: Direct LDL Cholesterol 69.67 mg/dL (100-129)
[2023-06-08 20:14] LABS: 25-OH Vitamin D, Total 39.4 ng/mL (30-100)
== END ==
LOC: LAB.DROPOF 23:51
PROVIDERS: PCP Emergency Medicine; Visit Provider Emergency Medicine
DX: E11.9 Type 2 diabetes mellitus without complications (principal); Z79.899 Other long term (current) drug therapy
CPT/HCPCS: 80053; 80061; 80076; 80305; 82306; 83036

== ENCOUNTER → 2023-06-08 23:52 | Outpatient (CLI) | payer OTHER, SELFPAY | PROVIDERS: PCP Emergency Medicine; Visit Provider Emergency Medicine | DX: E11.9 Type 2 diabetes mellitus without complications (principal) ==

== ENCOUNTER → 2023-07-03 16:03 | Outpatient (CLI) | payer OTHER, SELFPAY ==
--- NOTE | 2023-07-03 16:03 | MM_ITS ---
PROCEDURE INFORMATION: Exam: MG Bilateral Screening 3D Mammography Exam date and time: 07/03/2023 4:16 PM Age: 57 years old Clinical indication: Screening examination TECHNIQUE: Imaging protocol: Bilateral Screening tomosynthesis and 2D mammography including computer-aided detection (CAD) when performed. COMPARISON: 1. MG MM DIG SCREENING MAMM BI W/CAD 10/04/2020 3:17 PM 2. MG Screening-Bilateral Mammography 09/19/2018 4:55 PM FINDINGS: MAMMOGRAPHY: Breast composition: There are scattered areas of fibroglandular density. Mass: None. Architectural distortion: None. Calcifications: No suspicious calcifications. Asymmetric density: None. Skin thickening: None. Axillary adenopathy: None. IMPRESSION: No mammographic evidence of malignancy. Annual screening is recommended unless otherwise clinically indicated. ASSESSMENT: BI-RADS Category 1: Negative
== END ==
PROVIDERS: PCP Emergency Medicine; Visit Provider Family Medicine
DX: Z12.31 Encounter for screening mammogram for malignant neoplasm of breast (principal)
CPT/HCPCS: 77063; 77067

== ENCOUNTER → 2023-08-06 07:34 | Outpatient (CLI) | payer OTHER, SELFPAY ==
[2023-08-06 22:11] LABS: Amphetamine/Metha Screen,Urine Negative ng/ml (<1000)
[2023-08-06 22:12] LABS: Barbiturates Screen,Urine Negative ng/ml (<200); Benzodiazepines Screen,Urine Negative ng/ml (<200)
[2023-08-06 22:13] LABS: Cannabinoid Screen,Urine Positive ng/ml (<50)
[2023-08-06 22:14] LABS: Cocaine Screen,Urine Negative ng/ml (<300); Methadone Screen,Urine Negative ng/ml (<300)
[2023-08-06 22:15] LABS: Opiate Screen,Urine Positive ng/ml (<300)
[2023-08-06 22:16] LABS: Phencyclidine Screen,Urine Negative ng/ml (<25)
== END ==
PROVIDERS: PCP Emergency Medicine; Visit Provider Emergency Medicine
DX: F41.9 Anxiety disorder, unspecified (principal)
CPT/HCPCS: 80305

== ENCOUNTER 2023-10-03 08:40 | Outpatient (CLI) | payer OTHER, SELFPAY ==
[2023-10-03 23:26] LABS: Barbiturates Screen,Urine Negative ng/ml (<200); Benzodiazepines Screen,Urine Negative ng/ml (<200); Methadone Screen,Urine Negative ng/ml (<300)
[2023-10-04 00:03] LABS: Amphetamine/Metha Screen,Urine Negative ng/ml (<1000); Cannabinoid Screen,Urine Negative ng/ml (<50)
[2023-10-04 00:04] LABS: Cocaine Screen,Urine Negative ng/ml (<300); Opiate Screen,Urine Positive ng/ml (<300)
[2023-10-04 00:05] LABS: Phencyclidine Screen,Urine Negative ng/ml (<25)
== END 2023-10-03 23:59 ==
LOC: LAB.DROPOF 10-04 08:41
PROVIDERS: PCP Nurse Practitioner Family; Visit Provider Nurse Practitioner Family
DX: F41.9 Anxiety disorder, unspecified (principal)
CPT/HCPCS: 80307

== ENCOUNTER 2024-04-29 10:52 | Outpatient (CLI) | payer OTHER, SELFPAY ==
--- NOTE | 2024-04-29 10:53 | CA_ITS ---
APPROVED REPORT EXAM: Comprehensive 2D, Doppler, and color-flow Echocardiogram Cheese Grader: Maki Vega CRT Ht: 5 ft 6 in Wt: 209lbs BSA: 2.04 BP: 132/82 mmHg Indications: Chest Pain, Shortness of Breath 2D Dimensions LA Volume 44.80 mL LA Volume Index 21.40 mL/m2 (M/F) 16-34 M-Mode Dimensions RVDd 2.58 cm (0.9-2.6) LA Diam 3.77 cm (1.9-4.0) LVDd 5.65 cm (3.5-5.7) LVDs 3.47 cm (3.5-5.7) IVSd 1.07 cm (0.6-1.1) PWd 1.00 cm (0.6-1.1) EF (Teich) 68.20% FS 38.60% EDV (Teich) 156.80 mL TAPSE 3.09 (<1.7) ESV (Teich) 49.80 mL LV Diastology E Decel Time 217 (160-240 msec) E/A Ratio 1.23 MED A' 9.50 cm/s LAT A' 2.30 cm/s Aortic Valve AO Peak GR. 7.70 mmHg Mitral Valve MV A Velocity 63.0 (40-130 cm/s) E/A Ratio 1.23 Pulmonary Valve PV Peak Velocity 100.0 (50-150 cm/s) Tricuspid Valve TR P. Velocity 147.00 cm/s RAP Estimate 10.00 mmHg RVSP 18.70 mmHg Left Ventricle The left ventricle is normal size. The left ventricular systolic function is normal. The left ventricular ejection fraction is within the normal range. There is normal left ventricular wall thickness. There is normal LV segmental wall motion. The left ventricular diastolic function is normal. LVEF is 55%. Right Ventricle The right ventricle is mildly dilated. The right ventricular systolic function is normal. Atria The left atrium size is normal. The right atrium size is normal. There is inconclusive Doppler evidence of interatrial shunt. Aortic Valve The aortic valve opens well. There is no aortic valvular stenosis. No aortic regurgitation is present. Mitral Valve The mitral valve is normal in structure. No evidence of mitral valve stenosis. There is no mitral valve regurgitation noted. Tricuspid Valve The tricuspid valve leaflets are thin and pliable. The tricuspid valve leaflets are thin and pliable. There is insufficient TR jet to estimate RVSP. Pulmonic Valve The pulmonary valve is normal in structure. Trace pulmonic regurgitation. Great Vessels The aortic root is normal in size. The ascending aorta is normal in size. IVC is normal in size and collapses >50% with inspiration. Pericardium There is no pericardial effusion. Other Information Study Quality: Fair Conclusion Normal biventricular systolic function. Mild RV dilation. Inconclusive Doppler evidence of interatrial shunt. Further evaluation with limited TTE + bubble study (i.e. agitated saline administration) is suggested to evaluate for presence of interatrial shunt. Electronically signed by : Angela Liz MD 04/29/2024 12:16:51
== END 2024-04-29 23:59 | disposition home or self-care (01) ==
LOC: RT 10:53
PROVIDERS: PCP Nurse Practitioner Family; Visit Provider Nurse Practitioner Family
DX: R06.09 Other forms of dyspnea (principal); R07.9 Chest pain, unspecified; Z82.49 Family history of ischemic heart disease and other diseases of the circulatory system
CPT/HCPCS: 93306

== ENCOUNTER 2024-05-12 13:39 | Outpatient (CLI) | payer OTHER, SELFPAY ==
--- NOTE | 2024-05-12 13:40 | CT_ITS ---
FINAL REPORT TECHNIQUE: Thin section axial images were obtained from the lung apices to the upper abdomen by computed tomography. Reformatted images were obtained and reviewed. This study was performed with techniques to keep radiation doses al low as reasonably achievable (ALARA). Individualized dose reduction techniques using automated exposure control or adjustment of mA and/or kV according to the patient's size were employed. CLINICAL HISTORY: lung cancer screening current smoker 1ppd x 40 years COMPARISON: None FINDINGS: CHEST CT LOW DOSE 58-year-old female, current smoker, [id number] history CTDI vol (mGy): 2.9 DLP (mGy-cm): 107.59 There is no axillary adenopathy. There is no mediastinal or hilar mass or adenopathy. The heart is normal in size. Moderate coronary artery calcifications are present. There is no pericardial or pleural effusion. There is mild emphysema and mild pulmonary scarring. Lung window images demonstrate no suspicious infiltrate or nodule. Limited images of the upper abdomen are unremarkable. IMPRESSION: Lung-RADS category 1. Recommend 12 month follow up low dose chest CT. Reviewed, Interpreted and Dictated by Reji Sánchez III, MD Transcribed by Megan Khan Authenticated and . [facility]
[2024-05-12] MEDS: ALBUTEROL 0.083% 2.5 MG/3 ML NEB IH (14:52)
--- NOTE | 2024-05-12 14:53 | PC.NURSE ---
PFT and 6 Minute Walk Test completed without incident. Albuterol 0.083% given via HHN, per written protocol, Pt tolerated tx well.
== END 2024-05-12 23:59 | disposition home or self-care (01) ==
LOC: RAD 13:40
PROVIDERS: PCP Nurse Practitioner Family; Visit Provider Nurse Practitioner Family
DX: F17.210 Nicotine dependence, cigarettes, uncomplicated (principal); R06.09 Other forms of dyspnea; R07.9 Chest pain, unspecified; Z82.49 Family history of ischemic heart disease and other diseases of the circulatory system
CPT/HCPCS: 71271; 94060; 94618; 94726; 94729; J7613

== ENCOUNTER 2024-06-03 06:54 | Outpatient (CLI) | payer OTHER, SELFPAY ==
--- NOTE | 2024-06-03 06:55 | CA_ITS ---
APPROVED REPORT EXAM: Limited 2D Echocardiogram Body Builder Apprentice: Sarah Davidson RVT Ht: 5 ft 6 in Wt: 209lbs BSA: 2.04 BP: 138/57 mmHg Indications: BUBBLE STUDY,SOA,HTN,SMOKER,HLD,DM,BENJAMÍN Other Information Study Quality: Fair Conclusion This is a limited TTE to evaluate for interatrial shunt. Limited windows were obtained. Agitated saline administration was performed. Agitated saline administration at rest, during sleep maneuver, and with Valsalva demonstrate no evidence of migration of bubbles from the RA into the LA. Findings are consistent with absence of evidence of interatrial shunt. Electronically signed by : Angela Liz MD 06/03/2024 09:34:56
--- NOTE | 2024-06-03 06:55 | NM_ITS ---
APPROVED REPORT Exam: Nuclear Stress Test Indication: Chest pain, SOB, HTN, DM, Tobacco use, Family history Patient Location: Outpatient Stress Tech: Haydee Hahn OR Tech:Magy Linton, ARRT, RT (R)(N) Ht: 5 ft 6 in Wt: 203 lbs Bra Size: 44DD HR: 56 bpm BP: 168/68 mmHg BSA: 2.01 m2 TID: 0.96 BMI: 32.7 History: Chest pain, SOB, HTN, DM, Tobacco use, Family history Procedure: Patient received 0.4 mg of intravenous Lexiscan, resting heart rate 56 bpm, resting blood pressure 168/68 mmHg, with Lexiscan maximum heart rate achieved was 98 bpm which is % of the maximum predicted heart rate and blood pressure was 179/77 mmHg. With Lexiscan, patient denied any complaint of chest pain. Cardiac Stress and Resting SPECT Images: Cardiac Stress and Resting SPECT images were obtained using technetium 99m Myoview 30.9 mCi stress and 10.89 mCi at rest. Resting and stress imaging in supine and prone position demonstrate no evidence of fixed or reversible perfusion defects. Gated imaging demonstrates normal global and regional LV systolic function. LVEF is calculated at 66%. Conclusion: No evidence of fixed or reversible perfusion defects. Gated imaging demonstrates normal global and regional LV systolic function. LVEF is calculated at 66%. Electronically signed by : Angela Liz MD 06/03/2024 14:46:21
--- NOTE | 2024-06-03 06:55 | CA_ITS ---
APPROVED REPORT Exam: Pharmacologic Technologist: Haydee Hahn, Ht: 5 ft 6 in Wt: 209 lbs BSA: 2.04 m2 HR: 54 bpm BP: 168/68 mmHg Rhythm: sb Medical History Medical History: HTN, Hyperlipidemia, Diabetes, Smoking Medications: Amlodipine,,,,, Lisinopril,,,,, Omeprazole,,,,, Trazadone,,,,, Gabapentin,,,,, Hydrochlorothiazide,,,,, Atorvastatin,,,,, Flonase,,,,, ClonAZEPAM,,,,, TAMSULOSIN,,,,, Albuterol,,,,, Nitroglycerin,,,,, Allergies: No known drug allergies Cardiac Risk Factors: HTN, Hyperlipidemia, Diabetes, FHX of CAD, Smoking Stress Test Details Test: LEXISCAN HR Resting HR: 56 bpm Max Heart Rate (APMHR): 162 bpm Max HR Achieved: 98 bpm Target HR (85% APMHR): 138 bpm % of APMHR: 60 Recovery HR: 60 bpm BP Resting BP: 168/68 mmHg Max BP: 179/77 mmHg Recovery BP: 162.0/73.0 mmHg ECG Resting ECG: Sinus bradycardia Stress ECG: No significant ST changes Arrhythmia: PVCs Clinical Exercise duration: 04:01 min Highest Stage Achieved: Exercise capacity: 1.0 METs Stress ECG Conclusion Pt had dyspnea Ectopy: PVC No significant ST changes Conclusion: EKG unremarkable due to lexiscan infusion. Myoview images reported separately. Test Summary REST 02:55 . . 56 . 168/ 68 . . Stage 1 . . . . . . . Myoview Injected Stage 1 01:00 . . 98 . . . . Stage 2 01:00 . . 74 . 179/ 77 . . Stage 3 01:00 . . 69 . 162/ 65 . . Stage 4 01:00 . . 64 . 162/ 72 . . Stage 4 01:01 . . 64 . 162/ 72 . Stop exercise at 04:01 RECOVERY 01:00 . . 64 . 154/ 76 . . RECOVERY 02:00 . . 62 . 152/ 73 . . RECOVERY 02:52 . . 60 . 162/ 73 . . Electronically signed by : Angela Liz MD 06/03/2024 14:45:08
[2024-06-03] MEDS: ISOTOPE MYOVIEW (PER STUDY) 1 DOSE IV (08:51)
[2024-06-03] MEDS: SODIUM CHLORIDE 0.9% 10ML SYR (RAD ONLY) 10 ML IV ×2 (08:51)
[2024-06-03] MEDS: REGADENOSON 0.4MG/5ML SYRINGE 0.4 MG IV (08:51)
== END 2024-06-03 23:59 | disposition home or self-care (01) ==
LOC: RAD 06:55
PROVIDERS: PCP Nurse Practitioner Family; Visit Provider Physician Assistant
DX: R06.09 Other forms of dyspnea (principal); E11.9 Type 2 diabetes mellitus without complications; E78.49 Other hyperlipidemia; I10 Essential (primary) hypertension; F17.210 Nicotine dependence, cigarettes, uncomplicated
CPT/HCPCS: 78452; 93017; 93018; 93308; A9502; J2785

== ENCOUNTER 2024-07-16 10:46 | Outpatient (CLI) | payer OTHER, SELFPAY ==
[2024-07-16 18:41] LABS: Basophils # 0.1 K/mm3 (0-0.2); Basophils % 0.9 % (0.1-2.0); Eosinophils # 0.1 K/mm3 (0.0-0.4); Eosinophils % 1.7 % (0.1-12.0); Hemoglobin 15.1 g/dL (12.2-16.2); Lymphocytes # 2.1 K/mm3 (0.7-4.5); Lymphocytes % 31.1 % (10-50); Mean Corpuscular HGB Conc 33.5 g/dL (31.8-35.4); Mean Corpuscular Hemoglobin 31.6 pg (27.0-31.2); Mean Corpuscular Volume 94.3 fl (81-99); Mean Platelet Volume 8.7 fl (7.4-10.4); Monocytes # 0.4 K/mm3 (0.1-1.0); Monocytes % 5.2 % (1.7-9.3); Neutrophils # 4.1 K/mm3 (1.8-7.8); Neutrophils % 61.1 % (37.0-80.0); Platelet Count 326 K/mm3 (142-424); Red Blood Count 4.77 M/mm3 (4.20-5.40); Red Cell Distribution Width 13.8 % (11.5-17.5); White Blood Count 6.7 K/mm3 (4.8-10.8)
[2024-07-16 19:28] LABS: Albumin Level 4.6 g/dl (3.5-5.0); Chloride 102 mmol/L (98-107); Sodium 138 mmol/L (136-145)
[2024-07-16 19:29] LABS: Potassium 4.4 mmoL/L (3.5-5.1)
[2024-07-16 19:31] LABS: Alanine Aminotransferase 15 U/L (12-78); Albumin/Globulin Ratio 1.5 (1.1-1.8); Alkaline Phosphatase 72 U/L (38-126); Anion Gap 11.4 mEq/L (5-15); Aspartate Amino Transferase 23 U/L (14-36); Bilirubin,Total 0.5 mg/dl (0.2-1.3); Blood Urea Nitrogen 12 mg/dl (7-17); Carbon Dioxide 29 mmol/L (22.0-30.0); Estimated Glomerular Filt Rate 103 ml/min (>60); GFR (African American) 124 ML/MIN (>60); Globulin 3.1 g/dL (1.3-3.2); Total Protein,Serum 7.7 g/dl (6.3-8.2)
[2024-07-16 19:32] LABS: Calcium 10.1 mg/dl (8.4-10.2); Chol/HDL Ratio 2.9 (1-3.5); Cholesterol 177 mg/dl (140-200); Glucose 105 mg/dl (74-100); HDL Cholesterol 62 mg/dl (40-60); Triglycerides 85 mg/dl (30-150); VLDL Cholesterol 17 mg/dL (0-40)
[2024-07-16 19:50] LABS: Direct LDL Cholesterol 81.36 mg/dL (100-129)
[2024-07-16 19:55] LABS: Hemoglobin A1C 5.5 % (4.0-6.0)
[2024-07-16 19:56] LABS: 25-OH Vitamin D, Total 35.5 ng/mL (30-100)
== END 2024-07-16 23:59 | disposition home or self-care (01) ==
LOC: LAB.DROPOF 07-17 12:10
PROVIDERS: PCP Nurse Practitioner Family; Visit Provider Nurse Practitioner Family
DX: E11.9 Type 2 diabetes mellitus without complications (principal); E66.01 Morbid (severe) obesity due to excess calories; Z68.41 Body mass index [BMI] 40.0-44.9, adult
CPT/HCPCS: 80050; 80053; 80061; 82306; 83036; 84443; 85025

== ENCOUNTER 2025-04-16 15:55 | Outpatient (CLI) | payer OTHER, SELFPAY ==
--- NOTE | 2025-04-16 16:30 | MM_ITS ---
PROCEDURE INFORMATION: Exam: MG Bilateral Screening 3D Mammography Exam date and time: 04/16/2025 4:14 PM Age: 59 years old Clinical indication: Screening examination TECHNIQUE: Imaging protocol: Bilateral Screening tomosynthesis and 2D mammography including computer-aided detection (CAD) when performed. COMPARISON: 1. MG MM DIG SCREENING MAMM BI W/CAD 07/03/2023 4:16 PM 2. MG MM DIG SCREENING MAMM BI W/CAD 10/04/2020 3:17 PM FINDINGS: MAMMOGRAPHY: Breast composition: There are scattered areas of fibroglandular density. Mass: None. Architectural distortion: None. Calcifications: No suspicious calcifications. Asymmetric density: None. Skin thickening: None. Axillary adenopathy: None. IMPRESSION: No mammographic evidence of malignancy. Annual screening is recommended unless otherwise clinically indicated. ASSESSMENT: BI-RADS Category 1: Negative.
== END 2025-04-16 23:59 | disposition home or self-care (01) ==
LOC: RAD 15:55
PROVIDERS: PCP Nurse Practitioner Family; Visit Provider Nurse Practitioner Family
DX: Z12.31 Encounter for screening mammogram for malignant neoplasm of breast (principal); R92.323 Mammographic fibroglandular density, bilateral breasts
CPT/HCPCS: 77063; 77067

== ENCOUNTER 2025-06-18 08:48 | Day surgery (SDC) | payer OTHER, SELFPAY ==
[2025-06-16 08:29] VITALS: BMI 34.2
--- NOTE | 2025-06-16 13:55 | P.HP_ITS ---
History of Present Illness *Admission Date: 06/18/25 *Reason for visit:: Screening/surveillance-prior adenomatous polyps and family history *History of present illness: Mrs. Salomon is a 59-year-old female who is here for follow-up screening/surveillance colonoscopy. The patient did have a colonoscopy in November 2020 (Mumtaz Morel M.D.) and had a lobulated pedunculated polyp at 25 cm from the anal verge (tubular adenoma) which was removed. It was recommended by him to have 1 to 2-year surveillance colonoscopy. His report states that there was severe spasticity and moderate bowel preparation. The patient's mother had colon cancer at the age of 71. The examination is deemed medically necessary for screening/surveillance colonoscopy. The patient has been seen, interviewed and examined prior to the procedure by both myself and the anesthesia provider. [facility] Disclaimer: The information contained in this section may have been updated after the patient was seen, as this information can be updated by other users. Medical History Family history of heart disease Anxiety Diabetes mellitus Surgical History Status post left foot surgery History of delivery History of cholecystectomy Hx of appendectomy Family History Grandmother Cancer maternal/paternal-breast Mother Cancer Social History (Updated 06/18/25 @ 09:11 by Daya Desai RN) Smoking Status: Current every day smoker tobacco type: cigarettes packs per day: 1 second hand exposure: Yes alcohol intake: never substance use type: marijuana current occupational status: employed Travel in the last 8 weeks?: None household members: significant other housing: house current occupation: cook current occupational exposures/hazards: No caffeine: Yes Have you lived/traveled outside [place] in past 30 days?: No Contact w/someone who lives/traveled outside US past 30 days?: No Exposure to someone with infectious disease in past 14 days?: No Do you have a fever (greater than 100.4 F or 38 C)?: No Have you tested positive for COVID-19?: No Exposed to someone with COVID-19 in past 14 days?: No Do you have a sore throat?: No Do you have a cough?: No Do you have any weakness?: No Are you experiencing any nausea/vomitting?: No Do you have any diarrhea?: No Are you experiencing any unusual bleeding?: No Do you have any muscle aches/pain?: No Do you have any abdominal pain?: No Are you experiencing loss of taste or smell?: No Other Medical History Have you received the Flu Vaccine for this season: Yes Have you received the Pneumonia Vaccine: No Review of Systems Review of Systems Review of systems (narrative): Negative *Cardiovascular Comments: Negative *Gastrointestinal Comments: Negative *Genitourinary Comments: Negative *Musculoskeletal Comments: Negative *Neurologic Comments: Negative Meds Home Medications and Allergies Home Medications ?Medication ?Instructions ?Recorded ?Confirmed ?Type nitroglycerin 0.4 mg sublingual 0.4 mg sublingual Q5M 30 days #30 05/01/24 06/18/25 Rx tablet (Nitrostat) tabs atorvastatin 10 mg tablet See Rx Instructions .Route 0 06/25/24 06/18/25 Rx .COMPLEX #90 ea cariprazine 1.5 mg capsule See Rx Instructions .Route 08/05/24 06/18/25 Rx (Vraylar) .COMPLEX #90 caps lisinopril 2.5 mg tablet See Rx Instructions .Route 0 10/20/24 06/18/25 Rx .COMPLEX #90 tabs nystatin 100,000 unit/gram topical See Rx Instructions .Route 10/31/24 06/18/25 Rx powder .COMPLEX #60 grams omeprazole 40 mg capsule,delayed See Rx Instructions . Route 01/08/25 06/18/25 Rx release .COMPLEX #90 caps amlodipine 5 mg tablet See Rx Instructions .Route 0 02/01/25 06/18/25 Rx .COMPLEX #90 tabs hydrochlorothiazide 12.5 mg capsule See Rx Instruction s .Route 02/01/25 06/18/25 Rx .COMPLEX #90 caps bupropion HCl 75 mg tablet See Rx Instructions .Route 02/17/25 06/18/25 Rx .COMPLEX #180 tabs trazodone 50 mg tablet See Rx Instructions .Route 0 03/12/25 06/18/25 Rx .COMPLEX #180 tabs clonazepam 0.5 mg tablet 0.5 mg PO DAILY PRN Anxiety #12 04/06/25 06/18/25 Rx tabs gabapentin 800 mg tablet See Rx Instructions .Route 0 04/08/25 06/18/25 Rx .COMPLEX #90 tabs tamsulosin 0.4 mg capsule See Rx Instructions .Route 0 04/10/25 06/18/25 Rx .COMPLEX #90 caps semaglutide 2 mg/dose (8 mg/3 mL) See Rx Instructions .Route 05/15/25 06/18/25 Rx subcutaneous pen injector (Ozempic) .COMPLEX #3 mL sodium sul 1.479 gram-potas ch See Rx Instructions PO PER PKG DIR 06/04/25 06/18/25 Rx 0.188 gram-magnes sul 0.225 gram colonscopy #24 tabs tablet (Sutab) fluticasone propionate 50 See Rx Instructions .Route 0 06/08/25 06/18/25 Rx mcg/actuation nasal .COMPLEX #16 grams spray,suspension albuterol sulfate 90 mcg/actuation See Rx Instructions .Route 06/10/25 06/18/25 History aerosol inhaler (Ventolin HFA) .COMPLEX PRN Shortness Of Breath hydrocodone 7.5 mg-acetaminophen 1 tab PO QID Pain #12 0 tabs 06/10/25 06/18/25 Rx 325 mg tablet New Prescriptions to Start Prescriptions: Allergies Allergy/AdvReac Type Severity Reaction Status Date / Time No Known Allergies Allergy Verified 06/18/25 08:56 Exam Data for Last 24 hours I & O for Last 24 hours: Intake & Output 06/13/25 06/14/25 06/15/25 06/16/25 23:59 23:59 23:59 23:59 Weight 212 lb *Routine HEENT Exam Head: Present normocephalic Eye: Present EOMI and PERRL ENT: Present mucous membranes moist *Routine Neck Exam Neck: Present supple *Routine Respiratory Exam Respiratory: Present CTA bilaterally *Routine Cardiovascular Exam Cardiovascular: Present RRR *Routine Abdominal Exam Abdominal: Present soft and normoactive bowel sounds; Absent tenderness *Routine Rectal Exam Rectal:: deferred *Routine Genitalia Exam Genitalia:: deferred *Routine Extremities Exam Extremities: Absent cyanosis, clubbing or edema *Routine Skin Exam Skin: Present warm; Absent rash *Routine Neurological Exam Neurological: Present alert and oriented X3 Assessment and Plan *Assessment and plan (1) Personal history of adenomatous and serrated colon polyps: Status: Acute Category: Medical Code(s): Z86.0101 - Personal history of adenomatous and serrated colon polyps (2) Family history of colon cancer in mother: Status: Acute Category: Medical Code(s): Z80.0 - Family history of malignant neoplasm of digestive organs (3) Screening for colon cancer: Status: Acute Category: Medical Code(s): Z12.11 - Encounter for screening for malignant neoplasm of colon Plan A/P: 1. Personal history of adenomatous colon polyps and family history of colon cancer is the preprocedural diagnosis. The patient will be anesthetized/sedated using MAC sedation. The patient has been seen and examined. Cardiac and lung assessment prior to the examination is stable. Proceed with planned screening/surveillance colonoscopy.
--- NOTE | 2025-06-18 07:18 | HMH.PROCNOTE ---
[facility] Procedure Note Date: 06/18/25 Time: 10:06 Procedure Note:: Colonoscopy Procedure Report: Colonoscopy with cold snare polypectomy Endoscopist: Frankie Jean II, MD Referring physician: OLLIE Srinivasan Date of Procedure: June 18, 2025 Equipment: Olympus [id number] adult colonoscope Sedation: MAC sedation Indication: Mrs. Salomon is a 59-year-old female who is here for follow-up screening/surveillance colonoscopy. The patient did have a colonoscopy in November 2020 (Mumtaz Morel M.D.) and had a lobulated pedunculated polyp at 25 cm from the anal verge (tubular adenoma) which was removed. It was recommended by him to have 1 to 2-year surveillance colonoscopy. His report states that there was severe spasticity and moderate bowel preparation on this prior examination. The patient does state that her mother had colon cancer at the age of 71. She reports no abdominal pain, weight loss, change in her bowel habits or rectal bleeding. The examination is deemed medically necessary for screening/surveillance colonoscopy. Procedure: Prior to the procedure, a history and physical exam was performed, and patient's medications and allergies were reviewed. The risks, benefits and alternatives of the sedation and procedure were discussed with the patient. All questions were answered and informed consent was obtained. The patient was brought to the procedure room. Patient identification and proposed procedure were verified by the physician and the nurse. The patient was placed in a left lateral decubitus position and the scope was passed under direct vision. Throughout the procedure, the patient's blood pressure, pulse, and oxygen saturations were monitored continuously. The colonoscopy was accomplished without difficulty. The patient tolerated the procedure well. Findings: On digital rectal examination there was normal rectal tone. There were no external hemorrhoids. The colonoscope was introduced through the anal canal to the rectum and advanced to the cecum. The ileocecal valve and appendiceal orifice were identified. The scope was advanced a short distance into the ileum which appeared grossly normal. The scope was then withdrawn into the colon. The cecum, ascending and transverse colon and mucosa were grossly normal. There was a single polyp in the cecum (3 mm) which was removed via cold snare polypectomy. There was a second larger 11-12 mm polyp in the descending colon removed via cold snare polypectomy. There was some minor oozing of venous blood from the post polypectomy site and a single Endo Clip was placed over the polypectomy site to provide hemostasis. There were scattered diverticuli throughout the descending and sigmoid colon (LEFT colon). The rectum itself was normal. Upon retroflexion within the rectum there were grade 1-2 internal hemorrhoids. The preparation was good throughout with [place] Preparation Score of 8 out of 9. The cecal time was 14 minutes. Impression: 1. Descending colon polyp (11 to 12 mm) 2. Diminutive cecal colon polyp (3 mm) 3. Left-sided diverticulosis 4. Grade 1-2 internal hemorrhoids Plan: I will follow-up the polyp histology and recommend repeat screening/surveillance colonoscopy again in 5 years. I will discuss findings with the patient and family.
[2025-06-18 09:10] VITALS: BP 150/72; PULSE 60; RESP 18; TEMP 36.6; O2SAT 97; BMI 34.2
[2025-06-18] MEDS: LACTATED RINGERS 1000ML 1,000 ML 50 ML IV (09:17)
--- NOTE | 2025-06-18 09:23 | P.PNANES_ITS ---
[facility] Disclaimer: The information contained in this section may have been updated after the patient was seen, as this information can be updated by other users. Medical History Family history of heart disease Anxiety Diabetes mellitus Surgical History Status post left foot surgery History of delivery History of cholecystectomy Hx of appendectomy Family History Grandmother Cancer maternal/paternal-breast Mother Cancer Social History (Updated 06/18/25 @ 09:11 by Daya Desai RN) Smoking Status: Current every day smoker tobacco type: cigarettes packs per day: 1 second hand exposure: Yes alcohol intake: never substance use type: marijuana current occupational status: employed Travel in the last 8 weeks?: None household members: significant other housing: house current occupation: cook current occupational exposures/hazards: No caffeine: Yes Have you lived/traveled outside [place] in past 30 days?: No Contact w/someone who lives/traveled outside [place] past 30 days?: No Exposure to someone with infectious disease in past 14 days?: No Do you have a fever (greater than 100.4 F or 38 C)?: No Have you tested positive for COVID-19?: No Exposed to someone with COVID-19 in past 14 days?: No Do you have a sore throat?: No Do you have a cough?: No Do you have any weakness?: No Are you experiencing any nausea/vomitting?: No Do you have any diarrhea?: No Are you experiencing any unusual bleeding?: No Do you have any muscle aches/pain?: No Do you have any abdominal pain?: No Are you experiencing loss of taste or smell?: No [facility] Anesthesia Checklist Patient Identification Patient Identification: Arm Band and Verbal (Name & ) Structural Data Admitted From: Home Planned Operative Procedure/s: colonoscopy Consent for Planned Operative Procedure(s) Verified: Yes Verified Documents: Surgical Consent NPO Status Verified Time NPO: 00:00 Additional verifications Anesthesia Reactions: No Hx Blood Transfusions: No Blood Transfusion Reaction: No Airway Assessment Mallampati Score:: Class II C-Spine Mobility Assessed: Yes TMJ Mobility Assessed: Yes Dentition: Dentures-good fit (Top only) Neurological Assessment Level of Consciousness: Awake, Alert and Appropriate Hx Seizures: No Numbness or tingling in extremities: No Anesthesia Plan Anesthesia Risk discussed: Yes Anesthesia Plan: Verified ASA Class: II Anesthesia Type: MAC
[2025-06-18 09:32] LABS: POC Glucose,Bedside 107 gm/dL (70-110)
[2025-06-18 10:08] VITALS: BP 94/41; PULSE 53; RESP 16; TEMP 36.3; O2SAT 96
[2025-06-18 10:18] VITALS: BP 112/55; PULSE 50; O2SAT 98
[2025-06-18 10:28] VITALS: BP 121/60; PULSE 47; O2SAT 100
[2025-06-18 10:38] VITALS: BP 119/63; PULSE 54; O2SAT 98
== END 2025-06-18 10:38 | disposition home or self-care (01) ==
PROVIDERS: PCP Nurse Practitioner Family; Visit Provider Internal Medicine Gastroenterology
PROC: 0DJD8ZZ Inspection of Lower Intestinal Tract, Via Natural or Artificial Opening Endoscopic (ICD-10-PCS; CPT 45378; principal; 2025-06-18 10:30)
DX: Z12.11 Encounter for screening for malignant neoplasm of colon (principal); D12.0 Benign neoplasm of cecum; D12.4 Benign neoplasm of descending colon; K57.30 Diverticulosis of large intestine without perforation or abscess without bleeding; K64.0 First degree hemorrhoids; K64.1 Second degree hemorrhoids; F17.210 Nicotine dependence, cigarettes, uncomplicated; E11.9 Type 2 diabetes mellitus without complications; Z79.85 Long-term (current) use of injectable non-insulin antidiabetic drugs; Z80.0 Family history of malignant neoplasm of digestive organs; Z86.0101 Personal history of adenomatous and serrated colon polyps
CPT/HCPCS: 45385; 82962; J2003; J2704; J7120

== ENCOUNTER 2025-09-02 13:47 | Outpatient (CLI) | payer OTHER, SELFPAY ==
--- NOTE | 2025-09-02 14:15 | CT_ITS ---
FINAL REPORT TECHNIQUE: Axial CT images of the chest were obtained without contrast. Low-dose protocol was utilized. This study was performed with techniques to keep radiation doses as low as reasonably achievable (ALARA). Individualized dose reduction techniques using automated exposure control or adjustment of mA and/or kV according to the patient's size were employed. CLINICAL HISTORY: lung cancer screening current smoker 1.5ppd x41 years COMPARISON: 05/12/2024 FINDINGS: CT CHEST WITHOUT, LOW DOSE SCREENING CT Di Vol: 2.90 mGy DLP: 112.55 mGy*cm There are densely calcified left hilar lymph nodes. The heart size is normal. There is no pleural or pericardial effusion. The lung windows show no suspicious mass or nodule. No acute infiltrates. Mild changes of centrilobular emphysema are noted. Limited images of the upper abdomen demonstrate no acute findings. IMPRESSION: No suspicious mass or nodule. LR Category 1: 12 month follow-up low-dose chest CT is recommended per Fleischner criteria. Reviewed, Interpreted and Dictated by Addy Adhikari MD Transcribed by Leandra Rosales Authenticated and [facility]
== END 2025-09-02 23:59 | disposition home or self-care (01) ==
LOC: RAD 13:47
PROVIDERS: PCP Nurse Practitioner Family; Visit Provider Nurse Practitioner Family
DX: Z12.2 Encounter for screening for malignant neoplasm of respiratory organs (principal); F17.210 Nicotine dependence, cigarettes, uncomplicated
CPT/HCPCS: 71271